=== PATIENT | female | born 1935 | race Caucasian/White ===

== ENCOUNTER 2017-03-08 08:59 | Emergency (ER) | payer OTHER, MEDICAID ==
[2017-03-08 09:05] VITALS: BP 144/38; BMI 33.3
[2017-03-08] MEDS ORDERED: TORADOL 60 MG VIAL IM ONE (09:16)
[2017-03-08] MEDS ORDERED: TORADOL 60 MG VIAL ONE (09:17)
--- NOTE | 2017-03-08 09:20 | DR.GENAD ---
HPI - PCP Primary Care Physician: katie - Complaint/Symptoms Chief Complaint Doctors Comments: Patient admits to falling off the side of bed with hands extended. Admits to swelling of right wrist. Chief Complaint:: patient stated she fell at home early this morning and landed on her right wrist. - Source History Provided: Patient - Mode of Arrival Mode of Arrival: Ambulatory - Timing Onset of Chief Complaint: 03/08/17 PMH - PMH Past Medical History: Yes Past Medical History: Anemia, Angina, Anxiety, Arthritis, COPD, Coronary Artery Disease, CVA, Depression, Diabetes, Dyslipidemia, GERD, Hypertension, Hypothyroidism, [place] Past Surgical History: Yes Surgical History: Angioplasty/Stents, Appendectomy, CABG/Valve Surgery, Cholecystectomy, Hysterectomy - Family History History of Family Medical Conditions: Yes Family Medical History: Diabetes Mellitus, Cancer, [place], Coronary Artery Disease, Hypertension - Social History Does patient currently use any type of tobacco product: No Have you used tobacco products in the last 12 months: No Type of Tobacco Use: None Does any household member use tobacco: No Alcohol Use: None Do you use any recreational Drugs:: No Lives With: Family Lives Where: Home - infectious screening In the last 2 months have you had wt loss of >10#?: NO Have you had fever, night sweats or hemotysis?: No Have you traveled outside the country in the last 6 months?: No Isolation: Standard ROS - Review of Systems Eyes: No Symptoms Reported ENTM: No Symptoms Reported Respiratoy: No Symptoms Reported Cardiovascular: No Symptoms Reported Gastrointestinal/Abdominal: No Symptoms Reported Genitourinary: No Symptoms Reported Neurological: No Symptoms Reported Musculoskeletal: Right, Forearm (and wrist) Integumentary: No Symptoms Reported Hematologic/Lymphatic: No Symptoms Reported Endocrine: No Symptoms Reported Psychiatric: No Symptoms Reported All Other Systems: Reviewed and Negative PE - Vital Signs Vitals: Temperature 98.4 F Pulse Rate 55 Respiratory Rate 16 Blood Pressure [Left Arm] 142/61 Blood Pressure [Right Arm] 153/60 Blood Pressure 144/38 O2 Sat by Pulse Oximetry 99 - General Limitations: No Limitations General Appearance: Alert, In No Apparent Distress - Head Head Exam: Normal Inspection, Atraumatic - Eyes Eye exam: Normal Appearance, PERRL, EOMI - ENT ENT Exam: Normal Exam External Ear Exam: Normal External Inspection TM/Canal Exam: Bilateral Normal Nose Exam: Normal Nose Exam Mouth Exam: Normal Inspection Throat Exam: Normal Inspection - Neck Neck Exam: Normal Inspection - Chest Chest Inspection: Normal Inspection - Respiratory Respiratory Exam: Normal Lung Sounds Bilat Respiratory Exam: Bilateral Clear to Auscultation - Cardiovascular Cardiovascular Exam: Regular Rate - Abdominal Exam Abdominal Exam: Normal Inspection Abdominal Tenderness: negative: RUQ, RLQ, LUQ, LLQ, Epigastrium, Suprapubic, Diffuse, Mild, Moderate, Severe, Other - Extremities Extremities Exam: Tenderness (right distall forearm medially), Edema (right forearm) - Back Back Exam: Normal Inspection - Neurologic Neurological Exam: Alert, Oriented X3, CN II-XII Intact - Psychiatric Psychiatric Exam: Normal Affect, Normal Mood - Skin Skin Exam: Warm, Dry, Intact ROR - Labs Reviewed Laboratory Results Reviewed?: Yes - XRAY XRAY Interpreted by: Radiologist (Fracture of the distal right radius beginning in the metaphysis and extending onto the joint surface. Intack distal ulna.) - Diagnosis Discharge Problem: Distal radius fracture, right Qualifiers: Encounter type: initial encounter Fracture type: closed Fracture morphology: unspecified fracture morphology Qualified Code(s): S52.501A - Unspecified fracture of the lower end of right radius, initial encounter for closed fracture - Discharge Plan Condition: Stable - Follow ups/Referrals Follow ups/Referrals: Owen Hatfield [Primary Care Provider] - 3 days - Instructions
--- NOTE | 2017-03-08 09:54 | RAD ---
HISTORY: Injury, fall, right wrist pain and swelling Study: right forearm two view Comparison: None Findings: There is a fracture of the metaphysis of the distal right radius with extension onto the joint surfa ce. The distal ulna appears intact. The visualized carpal bones appear intact and normally aligned. Arterial vascular calcifications are present. IMPRESSION: Fracture of the distal right radius beginning in the metaphysis and extending onto the joint surface Intact distal ulna Reported By:
== END 2017-03-08 10:46 | disposition home or self-care (01) ==
LOC: ER 09:08
PROC: 2W38X1Z Immobilization of Right Upper Extremity using Splint (ICD-10-PCS; principal; 2017-03-08)
DX: S52.501A Unspecified fracture of the lower end of right radius, initial encounter for closed fracture (principal); W06.XXXA Fall from bed, initial encounter; Y92.009 Unspecified place in unspecified non-institutional (private) residence as the place of occurrence of the external cause
CPT/HCPCS: 29125; 73090; 96372; 99282; 99283; J1885

== ENCOUNTER 2018-05-10 10:41 | Inpatient (IN) ==
[2018-05-10 12:32] LABS: BASOPHILS # (AUTO) 0.1 X10^3/uL (0.0-0.1); EOSINOPHILS # (AUTO) 0.2 x10^3/uL (0.0-0.2); EOSINOPHILS % (AUTO) 1.9 % (0.9-2.9); HEMOGLOBIN 12.9 g/dL (12.0-16.0); LYMPHOCYTES % (AUTO) 21.8 % (21.0-51.0); MEAN CORPUSCULAR HEMOGLOBIN 27.4 pg (27.0-34.0); MEAN CORPUSCULAR HGB CONC 32.2 g/dL (33.0-35.0); MEAN CORPUSCULAR VOLUME 85.2 fL (80.0-100.0); MEAN PLATELET VOLUME 8.9 fL (7.4-11.0); MONOCYTES # (AUTO) 0.6 x10^3/uL (0.3-0.8); MONOCYTES % (AUTO) 6.5 % (0.0-13.0); NEUTROPHILS # (AUTO) 6.3 x10^3/uL (2.2-4.8); NEUTROPHILS % (AUTO) 68.8 % (42.0-75.0); PLATELET COUNT 242 X10^3/uL (150.0-450.0); RED BLOOD COUNT 4.69 X10^6/uL (3.5-5.4); RED CELL DISTRIBUTION WIDTH 17.1 % (11.6-16.5); WHITE BLOOD COUNT 9.2 X10^3/uL (3.6-10.0)
[2018-05-10 12:53] LABS: ALANINE AMINOTRANSFERASE 10 Units/L (12-78); ALBUMIN 2.9 g/dL (3.4-5.0); ALKALINE PHOSPHATASE 68 Units/L (46-116); ASPARTATE AMINO TRANSFERASE 10 Units/L (15-37); BLOOD UREA NITROGEN 23 mg/dL (7-18); CALCIUM 8.3 mg/dL (8.5-10.1); CARBON DIOXIDE 27.1 mmol/L (21-32); CHLORIDE 102 mmol/L (98-107); CKMB % 3.6 % (<4); COR CA(FOR HYPOALB) 9.2 mg/dL (8.5-10.1); COR NA(FOR HYPERGLY) 141 mmol/L (136-145); CREATINE KINASE 39 Units/L (26-192); CREATINE KINASE MB 1.4 ng/mL (0-4.0); CREATININE 1.21 mg/dL (0.55-1.02); SODIUM 135 mmol/L (136-145); TROPONIN I < 0.02 ng/mL (0-1.5); eGFR NON BLACK RACES 46 (>60)
[2018-05-10 12:59] LABS: CREATINE KINASE 40 Units/L (26-192); CREATINE KINASE MB 1.6 ng/mL (0-4.0); TROPONIN I < 0.02 ng/mL (0-1.5)
[2018-05-10] MEDS: CARDIZEM INJ 125 MG VIAL 125 MG in NS 100 ML IV 100 ML IV PRN (13:05)
[2018-05-10 13:12] VITALS: BMI 31.6
--- NOTE | 2018-05-10 13:39 | RAD ---
Exam: Portable chest History: 82-year-old female with shortness of breath. Comparison: Previous chest radiograph from 02/03/2015 Findings: Mild cardiomegaly is seen. No significant vascular congestion however. Patient is status post median sternotomy. Right hemidiaphragm is mildly elevated. Lungs are clear with no infiltrate or significant effusion on either side. Impression: Mild cardiomegaly. No acute superimposed abnormality is seen on this exam however. Reported By:
[2018-05-10 21:11] LABS: CKMB % 3.6 % (<4); CREATINE KINASE 42 Units/L (26-192); CREATINE KINASE MB 1.5 ng/mL (0-4.0)
[2018-05-10 21:43] LABS: TROPONIN I < 0.02 ng/mL (0-1.5)
[2018-05-10] MEDS: HumuLIN R SC PRN (22:08)
[2018-05-11] MEDS ORDERED: TYLENOL 325 MG TAB PO ONE (00:10)
[2018-05-11] MEDS ORDERED: CARDIZEM INJ 50 MG VIAL ONE ×2 (00:44→00:49)
[2018-05-11] MEDS: CARDIZEM INJ 125 MG VIAL 125 MG in NS 100 ML IV 100 ML IV PRN (01:56)
[2018-05-11] MEDS: HumuLIN R SC PRN ×4 (06:04→20:41)
[2018-05-11 06:17] LABS: BASOPHILS % (AUTO) 0.6 % (0.2-1.0); EOSINOPHILS # (AUTO) 0.2 x10^3/uL (0.0-0.2); EOSINOPHILS % (AUTO) 3.5 % (0.9-2.9); HEMATOCRIT 37.7 % (36.0-47.0); HEMOGLOBIN 12.2 g/dL (12.0-16.0); LYMPHOCYTES # (AUTO) 1.4 X10^3/uL (1.3-2.9); LYMPHOCYTES % (AUTO) 20.4 % (21.0-51.0); MEAN CORPUSCULAR HEMOGLOBIN 27.3 pg (27.0-34.0); MEAN CORPUSCULAR HGB CONC 32.3 g/dL (33.0-35.0); MEAN CORPUSCULAR VOLUME 84.6 fL (80.0-100.0); MEAN PLATELET VOLUME 9.3 fL (7.4-11.0); MONOCYTES # (AUTO) 0.5 x10^3/uL (0.3-0.8); MONOCYTES % (AUTO) 7.5 % (0.0-13.0); NEUTROPHILS # (AUTO) 4.7 x10^3/uL (2.2-4.8); PLATELET COUNT 218 X10^3/uL (150.0-450.0); RED BLOOD COUNT 4.45 X10^6/uL (3.5-5.4); RED CELL DISTRIBUTION WIDTH 17.1 % (11.6-16.5); WHITE BLOOD COUNT 6.9 X10^3/uL (3.6-10.0)
[2018-05-11 06:35] LABS: ALANINE AMINOTRANSFERASE 10 Units/L (12-78); ALBUMIN 2.6 g/dL (3.4-5.0); ALKALINE PHOSPHATASE 59 Units/L (46-116); ASPARTATE AMINO TRANSFERASE 11 Units/L (15-37); BLOOD UREA NITROGEN 16 mg/dL (7-18); CALCIUM 8.5 mg/dL (8.5-10.1); CARBON DIOXIDE 28.8 mmol/L (21-32); CHLORIDE 105 mmol/L (98-107); COR CA(FOR HYPOALB) 9.6 mg/dL (8.5-10.1); COR NA(FOR HYPERGLY) 143 mmol/L (136-145); CREATININE 0.94 mg/dL (0.55-1.02); SODIUM 139 mmol/L (136-145); TOTAL PROTEIN 6.2 g/dL (6.4-8.2); eGFR NON BLACK RACES > 60 (>60)
[2018-05-11] MEDS ORDERED: DILTIAZEM HCL 240 MG PO SCH (09:45)
[2018-05-11] MEDS ORDERED: COREG TAB 6.25 MG PO SCH (10:00)
[2018-05-11] MEDS: CARDIZEM CD 240 MG PO SCH (10:30)
[2018-05-11] MEDS: PATIENT'S HOME MEDICATION (Mirabegron [Myrbetriq] 50 MG) PO SCH (10:30)
[2018-05-11] MEDS: XARELTO PO SCH (10:31)
[2018-05-11] MEDS: LIPITOR TAB 40 MG PO SCH (10:31)
[2018-05-11] MEDS ORDERED: LANOXIN PO ONE (11:00)
--- NOTE | 2018-05-11 15:58 | DR.H&P ---
H&P - History & Physical for Day of: H&P Date: 05/10/18 - Chief Complaint Chief Complaint: tachycardia, short of breath, dizziness - History of Present Illness History of Present Illness: Patient presented to the hospital as a direct admission with reports of elevated heart rate, shortness of breath. Patient reports that her home health nurse was at her home for a routine visit. Upon checking her vitals, patient was found with a heart rate 120-130bpm. Patients baseline heart rate is in the 50s. Patient reports that she has been short of breath and dizzy since yesterday. Medical History includes: CVA, Hypertension, Back Pain, DM type II, and Atrial Fibrillation. On admission, vitlas were 97.1, 148, 22, 97% RA, 114/81. Labs were obtained. Abnormal Labs include the following: MCHC 32.2, RDW 17.1, Neut# 6.3, Sodium 135, BUN 23, Creatinine 1.21, GFR af 55, GFR non 46, Glucose 349, Calcium 8.3, AST 10, ALT 10, Albumin 2.9, A/ G Ratio 0.7. Chest X-Ray obtained and revealed: Mild cardiomegaly. No acute superimposed abnormality is seen on this exam however. 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 She was started on a Cardizem drip. We plan to follow up with serial cardiac enzymes and EKGs. We will obtain AM labs and continue to monitor patient. - Past Medical History Past Medical History: Anemia, Angina, Anxiety, Arthritis, COPD, Coronary Artery Disease, CVA, Depression, Diabetes, Dyslipidemia, GERD, Hypertension, Hypothyroidism, [place] Additional Medical History: Freq UTI's, PVD - Past Surgical History Surgical History: Cholecystectomy, Other - Family History Family Medical History: Diabetes Mellitus, Cancer - Social History Does patient currently use any type of tobacco product: No Have you used tobacco products in the last 12 months: No Type of Tobacco Use: None Does any household member use tobacco: No Alcohol Use: None Drug Use: None - Medications Home Medications: No Known Drug Allergies Allergy (Verified 08/27/17 12:03) CONTINUE taking the following medications atorvastatin 40 mg PO QDAY 05/10/18 [History] carvedilol 6.25 mg PO BID 05/10/18 [History] diltiazem HCl [Cartia XT] 240 mg PO QDAY 05/10/18 [History] mirabegron [Myrbetriq] 50 mg PO QDAY 05/10/18 [History] rivaroxaban [Xarelto] 20 mg PO QDAY 05/10/18 [History] - Review of Systems Constitutional: Weakness, Malaise Eyes: No Symptoms Reported ENT: No Symptoms Reported Respiratory: Shortness of Breath Cardiovascular: Chest Pain, Palpitations, Light Headedness Gastrointestinal: No Symptoms Reported Genitourinary: No Symptoms Reported Musculoskeletal: No Symptoms Reported Skin: No Symptoms Reported Neurological: Weakness - Physical Exam Vital Signs: Temperature 97.8 F Pulse Rate [Left Brachial] 76 Pulse Rate 76 Respiratory Rate 18 Blood Pressure [Left Arm] 149/77 Blood Pressure [Right Arm] 153/60 Blood Pressure 144/38 O2 Sat by Pulse Oximetry 98 Oriented: Normal Eyes: Normal Ear: Normal Nose: Normal Throat: Normal Respiratory: Diminished Throughout Cardiovascular: Tachycardia. negative: S3, S4, Murmur : Normal Auscultation: Bowel Sounds: Normal Palpation: Normal Tenderness: Normal Skin: Normal Musculoskeletal: Normal Psychiatric: Normal Mood Description: Calm Affect: Normal Speech Pattern: Clear - Assessment/Plan (1) Atrial fibrillation with rapid ventricular response Status: Acute Plan: admit, cardizem drip, supplemental oxygen, continue to monitor (2) Chest pain Qualifiers: Chest pain type: unspecified Qualified Code(s): R07.9 - Chest pain, unspecified Status: Acute Plan: serial cardiac enzymes and ekg, supplemental oxygen, continue to monitor - Allergies Allergies/Adverse Reactions: Allergies Allergy/AdvReac Type Severity Reaction Status Date / Time No Known Drug Allergies Allergy Verified 08/27/17 12:03
--- NOTE | 2018-05-11 16:38 | PCM.PROG ---
Progress Note - Progress Note for Day of Date of Exam: 05/11/18 - Subjective Subjective: was admitted for atrial fibrillation with RVR and chest pain. She was placed in the intensive care unit on a Cardizem drip. Today, she is alert and oriented, lying in bed on morning rounds. She denies chest pain or dizziness today. She does report shortness of breath at times. On examination, heart is regular in rate and rhythm. turning sander tender reveals HR in the 70s. Bilateral lungs are clear to auscultation. Abdomen is round, soft, and non- tender with normal bowel sounds noted in all quadrants. Her vitals this morning are 97.5-77-20-97%-127/63. Labs were obtained. Abnormal Labs include the following: MCHC 32.3, RDW 17.1, Lymph% 20.4, Eos% 3.5, Glucose 270, AST 11, ALT 10, Total Protein 6.2, Albumin 2.6, A/G Ratio 0.7, Digoxin <0.20. Cardiac enzymes have been within normal limits. Most recent EKG reveals sinus rhythm with HR 76. Today, we will administer digoxin 0.125mg po x 1 dose and resume her PO Cardizem. We will then discontinue the Cardizem drip. Otherwise, we will continue to monitor patient in the ICU. We will follow up with AM labs and EKG. - Past Medical Family Social History Past Med/Fam/Surg Hx: No changes since H&P Allergies: Allergies No Known Drug Allergies Allergy (Verified 08/27/17 12:03) - Review of Systems ROS: No change since H&P - Vital Signs and I&O's Vital Signs: Temperature 98 F Pulse Rate [Left Brachial] 77 Pulse Rate 76 Respiratory Rate 20 Blood Pressure [Left Arm] 163/71 Blood Pressure [Right Arm] 153/60 Blood Pressure 144/38 O2 Sat by Pulse Oximetry 98 Intake and Output: Intake & Output 05/09/18 05/10/18 05/11/18 05/12/18 11:59 11:59 11:59 11:59 Intake Total 935 / 935 700 / 700 Balance 935 / 935 700 / 700 - Physical Exam Oriented: Normal Eyes: Normal Ear: Normal Nose: Normal Throat: Normal Respiratory: Normal Cardiovascular: Normal. negative: S3, S4, Murmur : Normal Auscultation: Bowel Sounds: Normal Palpation: Normal Tenderness: Normal Skin: Normal Musculoskeletal: Normal Psychiatric: Normal Mood Description: Calm Affect: Normal Speech Pattern: Clear - Laboratory and Diagnostics Result Diagrams: 05/11/18 05:17 05/11/18 05:17 Labs: Laboratory WBC 6.9 X10^3/uL (3.6-10.0) 05/11/18 05:17 RBC 4.45 X10^6/uL (3.5-5.4) 05/11/18 05:17 Hgb 12.2 g/dL (12.0-16.0) 05/11/18 05:17 Hct 37.7 % (36.0-47.0) 05/11/18 05:17 MCV 84.6 fL (80.0-100.0) 05/11/18 05:17 MCH 27.3 pg (27.0-34.0) 05/11/18 05:17 MCHC 32.3 g/dL (33.0-35.0) L 05/11/18 05:17 RDW 17.1 % (11.6-16.5) H 05/11/18 05:17 Plt Count 218 X10^3/uL (150.0-450.0) 05/11/18 05:17 MPV 9.3 fL (7.4-11.0) 05/11/18 05:17 Neut % (Auto) 68.0 % (42.0-75.0) 05/11/18 05:17 Lymph % (Auto) 20.4 % (21.0-51.0) L 05/11/18 05:17 [place] % (Auto) 7.5 % (0.0-13.0) 05/11/18 05:17 Eos % (Auto) 3.5 % (0.9-2.9) H 05/11/18 05:17 Baso % (Auto) 0.6 % (0.2-1.0) 05/11/18 05:17 Neut # (Auto) 4.7 x10^3/uL (2.2-4.8) 05/11/18 05:17 Lymph # (Auto) 1.4 X10^3/uL (1.3-2.9) 05/11/18 05:17 Benson # (Auto) 0.5 x10^3/uL (0.3-0.8) 05/11/18 05:17 Eos # (Auto) 0.2 x10^3/uL (0.0-0.2) 05/11/18 05:17 Baso # (Auto) 0.0 X10^3/uL (0.0-0.1) 05/11/18 05:17 Absolute Nucleated RBC 0.0 /100WBC 05/11/18 05:17 Sodium 139 mmol/L (136-145) 05/11/18 05:17 Corrected Sodium 143 mmol/L (136-145) 05/11/18 05:17 Potassium 3.6 mmol/L (3.5-5.1) 05/11/18 05:17 Chloride 105 mmol/L (98-107) 05/11/18 05:17 Carbon Dioxide 28.8 mmol/L (21-32) 05/11/18 05:17 BUN 16 mg/dL (7-18) 05/11/18 05:17 Creatinine 0.94 mg/dL (0.55-1.02) 05/11/18 05:17 Est GFR (MDRD) Af Amer > 60 (>60) 05/11/18 05:17 Est GFR (MDRD) Non-Af > 60 (>60) 05/11/18 05:17 Glucose 270 mg/dL (65-99) H 05/11/18 05:17 POC Glucose (mg/dL) 368 mg/dL (65-99) H 05/11/18 11:22 Calcium 8.5 mg/dL (8.5-10.1) 05/11/18 05:17 Corrected Calcium 9.6 mg/dL (8.5-10.1) 05/11/18 05:17 Total Bilirubin 0.50 mg/dL (0.2-1.0) 05/11/18 05:17 AST 11 Units/L (15-37) L 05/11/18 05:17 ALT 10 Units/L (12-78) L 05/11/18 05:17 Alkaline Phosphatase 59 Units/L (46-116) 05/11/18 05:17 Creatine Kinase 42 Units/L (26-192) 05/10/18 20:30 CK-MB (CK-2) 1.5 ng/mL (0-4.0) 05/10/18 20:30 CK/CKMB % Calc 3.6 % (<4) 05/10/18 20:30 Troponin I < 0.02 ng/mL (0-1.5) 05/10/18 20:30 Total Protein 6.2 g/dL (6.4-8.2) L 05/11/18 05:17 Albumin 2.6 g/dL (3.4-5.0) L 05/11/18 05:17 Globulin 3.6 g/dL (2.5-4.5) 05/11/18 05:17 Albumin/Globulin Ratio 0.7 Ratio (1.1-2.1) L 05/11/18 05:17 Digoxin < 0.20 ng/mL (0.9-2) L 05/11/18 05:17 - Plan (1) Atrial fibrillation with rapid ventricular response Status: Acute Plan: admit, cardizem 240mg po daily, digoxin 0.125mg po x 1 dose, supplemental oxygen, continue to monitor (2) Chest pain Status: Acute Qualifiers: Chest pain type: unspecified Qualified Code(s): R07.9 - Chest pain, unspecified Plan: supplemental oxygen, continue to monitor
[2018-05-11] MEDS: TYLENOL 325 MG TAB PO PRN (22:22)
[2018-05-12] MEDS: MILK OF MAGNESIA PO SCH ×3 (00:38→21:32)
[2018-05-12] MEDS: CARDIZEM INJ 125 MG VIAL 125 MG in NS 100 ML IV 100 ML IV PRN ×3 (03:11→05:50)
[2018-05-12] MEDS: HumuLIN R SC PRN ×4 (05:51→21:45)
[2018-05-12 06:14] LABS: BASOPHILS # (AUTO) 0.1 X10^3/uL (0.0-0.1); BASOPHILS % (AUTO) 0.7 % (0.2-1.0); EOSINOPHILS # (AUTO) 0.2 x10^3/uL (0.0-0.2); EOSINOPHILS % (AUTO) 2.4 % (0.9-2.9); HEMATOCRIT 39.2 % (36.0-47.0); HEMOGLOBIN 12.9 g/dL (12.0-16.0); LYMPHOCYTES # (AUTO) 1.8 X10^3/uL (1.3-2.9); LYMPHOCYTES % (AUTO) 21.8 % (21.0-51.0); MEAN CORPUSCULAR HEMOGLOBIN 27.4 pg (27.0-34.0); MEAN CORPUSCULAR HGB CONC 32.8 g/dL (33.0-35.0); MEAN CORPUSCULAR VOLUME 83.5 fL (80.0-100.0); MEAN PLATELET VOLUME 9.2 fL (7.4-11.0); MONOCYTES # (AUTO) 0.6 x10^3/uL (0.3-0.8); MONOCYTES % (AUTO) 6.8 % (0.0-13.0); NEUTROPHILS # (AUTO) 5.6 x10^3/uL (2.2-4.8); NEUTROPHILS % (AUTO) 68.3 % (42.0-75.0); PLATELET COUNT 234 X10^3/uL (150.0-450.0); RED BLOOD COUNT 4.69 X10^6/uL (3.5-5.4); RED CELL DISTRIBUTION WIDTH 16.7 % (11.6-16.5); WHITE BLOOD COUNT 8.2 X10^3/uL (3.6-10.0)
[2018-05-12 06:32] LABS: ALANINE AMINOTRANSFERASE 10 Units/L (12-78); ALBUMIN 2.6 g/dL (3.4-5.0); ALKALINE PHOSPHATASE 60 Units/L (46-116); ASPARTATE AMINO TRANSFERASE 11 Units/L (15-37); BLOOD UREA NITROGEN 11 mg/dL (7-18); CALCIUM 8.7 mg/dL (8.5-10.1); CARBON DIOXIDE 30.5 mmol/L (21-32); CHLORIDE 107 mmol/L (98-107); COR CA(FOR HYPOALB) 9.8 mg/dL (8.5-10.1); COR NA(FOR HYPERGLY) 146 mmol/L (136-145); SODIUM 142 mmol/L (136-145); TOTAL PROTEIN 6.4 g/dL (6.4-8.2); eGFR NON BLACK RACES > 60 (>60)
[2018-05-12] MEDS: XARELTO PO SCH (08:43)
[2018-05-12] MEDS: LIPITOR TAB 40 MG PO SCH (08:43)
[2018-05-12] MEDS: CARDIZEM CD 240 MG PO SCH (08:43)
[2018-05-12] MEDS: PATIENT'S HOME MEDICATION (Mirabegron [Myrbetriq] 50 MG) PO SCH (08:44)
[2018-05-12] MEDS: COREG TAB 3.125 MG PO SCH ×2 (09:38→21:33)
[2018-05-12] MEDS ORDERED: COLACE CAP 100 MG PO SCH (21:00)
[2018-05-12] MEDS: TYLENOL 325 MG TAB PO PRN (21:31)
[2018-05-13] MEDS ORDERED: ULTRAM PO PRN (01:04)
[2018-05-13] MEDS: HumuLIN R SC PRN (05:30)
[2018-05-13 06:02] LABS: ALANINE AMINOTRANSFERASE 11 Units/L (12-78); ALBUMIN 2.5 g/dL (3.4-5.0); ALKALINE PHOSPHATASE 63 Units/L (46-116); ASPARTATE AMINO TRANSFERASE 13 Units/L (15-37); BLOOD UREA NITROGEN 12 mg/dL (7-18); CALCIUM 8.6 mg/dL (8.5-10.1); CARBON DIOXIDE 28.5 mmol/L (21-32); CHLORIDE 106 mmol/L (98-107); COR CA(FOR HYPOALB) 9.8 mg/dL (8.5-10.1); COR NA(FOR HYPERGLY) 142 mmol/L (136-145); CREATININE 0.78 mg/dL (0.55-1.02); SODIUM 139 mmol/L (136-145); TOTAL PROTEIN 6.2 g/dL (6.4-8.2); eGFR NON BLACK RACES > 60 (>60)
[2018-05-13 06:09] LABS: BASOPHILS % (AUTO) 0.6 % (0.2-1.0); EOSINOPHILS # (AUTO) 0.2 x10^3/uL (0.0-0.2); EOSINOPHILS % (AUTO) 2.9 % (0.9-2.9); HEMATOCRIT 38.9 % (36.0-47.0); HEMOGLOBIN 12.7 g/dL (12.0-16.0); LYMPHOCYTES % (AUTO) 27.6 % (21.0-51.0); MEAN CORPUSCULAR HEMOGLOBIN 27.3 pg (27.0-34.0); MEAN CORPUSCULAR HGB CONC 32.6 g/dL (33.0-35.0); MEAN PLATELET VOLUME 8.8 fL (7.4-11.0); MONOCYTES # (AUTO) 0.6 x10^3/uL (0.3-0.8); MONOCYTES % (AUTO) 7.8 % (0.0-13.0); NEUTROPHILS # (AUTO) 4.5 x10^3/uL (2.2-4.8); NEUTROPHILS % (AUTO) 61.1 % (42.0-75.0); PLATELET COUNT 244 X10^3/uL (150.0-450.0); RED BLOOD COUNT 4.63 X10^6/uL (3.5-5.4); RED CELL DISTRIBUTION WIDTH 16.8 % (11.6-16.5); WHITE BLOOD COUNT 7.3 X10^3/uL (3.6-10.0)
[2018-05-13] MEDS: CARDIZEM CD 240 MG PO SCH (08:10)
[2018-05-13] MEDS: MILK OF MAGNESIA PO SCH (08:10)
[2018-05-13] MEDS: COREG TAB 3.125 MG PO SCH (08:10)
[2018-05-13] MEDS: LIPITOR TAB 40 MG PO SCH (08:10)
[2018-05-13] MEDS: XARELTO PO SCH (08:11)
[2018-05-13] MEDS: PATIENT'S HOME MEDICATION (Mirabegron [Myrbetriq] 50 MG) PO SCH (10:05)
[2018-05-13 11:10] VITALS: BP 136/63
--- NOTE | 2018-06-26 13:46 | DR.CARTERD ---
- Discharge Summary for: Discharge Summary for Date of:: 05/13/18 - Admission Date Date of Admission: 05/10/18 - Admission Diagnoses Admission Diagnosis: (1) Atrial fibrillation with rapid ventricular response (2) Chest pain - Discharge Date Discharge Date: 05/13/18 - Discharge Diagnoses Discharge Diagnosis: (1) Atrial fibrillation with rapid ventricular response (2) Chest pain - Hospital Course Hospital Course: Day one, Patient presented to the hospital as a direct admission with reports of elevated heart rate, shortness of breath. Patient reported that her home health nurse was at her home for a routine visit. Upon checking her vitals, patient was found with a heart rate 120-130bpm. Patients baseline heart rate was in the 50s. Patient reported that she has been short of breath and dizzy since the day before. Medical History included: CVA, Hypertension, Back Pain, DM type II, and Atrial Fibrillation. On admission, vitals were 97.1, 148, 22, 97 % RA, 114/81. Labs were obtained. Abnormal Labs included the following: MCHC 32.2, RDW 17.1, Neut# 6.3, Sodium 135, BUN 23, Creatinine 1.21, GFR af 55, GFR non 46, Glucose 349, Calcium 8.3, AST 10, ALT 10, Albumin 2.9, A/G Ratio 0.7. Chest X-Ray obtained and revealed: Mild cardiomegaly. No acute superimposed abnormality is seen on this exam however. She was placed on the ekg monitor tech which revealed atrial fibrillation. She was started on a Cardizem drip. We obtained serial cardiac enzymes and EKGs. We continued to monitor patient. Day two, was admitted for atrial fibrillation with RVR and chest pain. She was placed in the intensive care unit on a Cardizem drip. She was alert and oriented, lying in bed on morning rounds. She denied chest pain or dizziness. She did report shortness of breath at times. On examination, heart was regular in rate and rhythm. school bus monitor revealed HR in the 70s. Bilateral lungs were clear to auscultation. Abdomen was round, soft, and non- tender with normal bowel sounds noted in all quadrants. Her vitals were 97.5-77- 20-97%-127/63. Labs were obtained. Abnormal Labs included the following: MCHC 32.3, RDW 17.1, Lymph% 20.4, Eos% 3.5, Glucose 270, AST 11, ALT 10, Total Protein 6.2, Albumin 2.6, A/G Ratio 0.7, Digoxin <0.20. Cardiac enzymes within normal limits. Most recent EKG revealed sinus rhythm with HR 76. We administered digoxin 0.125mg po x 1 dose and resumed her PO Cardizem. We weaned the Cardizem drip and continued to monitor in ICU. Day three, Cardizem drip was weaned. Heart rate was 105-146 on the ekg monitor tech. Patient continued to report periodic shortness of breath. She denied chest pain or dizziness. Blood pressure was stable as well as labs. Patient was started on PO Cardizem the day prior and we added Coreg 3.125mg po bid to her regimen. Day four, Heart rate was 79. Patient denied shortness of breath, chest pain, or dizziness. On auscultation, lungs clear. Vitals stable. Labs wnl. We planned for discharge. Instructions for medications and follow up were discussed with patient and family, both voiced understanding. Patient discharged home in stable condition with family. - Discharge Medications Discharge Medications: Home Medication List atorvastatin 40 mg PO QDAY 05/10/18 [History] mirabegron [Myrbetriq] 50 mg PO QDAY 05/10/18 [History] rivaroxaban [Xarelto] 20 mg PO QDAY 05/10/18 [History] carvedilol [Coreg] 3.125 mg PO BID #60 tab 05/13/18 [Rx] digoxin [Lanoxin] 0.125 mg PO QDAY #30 tab 05/13/18 [Rx] Prescriptions: carvedilol [Coreg] [place] digoxin [Lanoxin] [place] Home medications esomeprazole magnesium 40 mg PO DAILY 05/15/18 levothyroxine 175 mcg PO DAILY 05/15/18 lisinopril-hydrochlorothiazide 1 tab PO DAILY 05/15/18 potassium chloride 10 meq PO DAILY 05/15/18 diltiazem HCl [Cardizem CD] 1 cap PO DAILY 05/16/18 insulin glargine [Lantus U-100 Insulin] 15 unit SUBCUT BID 05/18/18 levofloxacin [Levaquin] 500 mg PO DAILY #10 tab 05/18/18 - Discharge Disposition Discharge Disposition: Patient is to follow up in our office in one week.
== END 2018-05-13 11:30 | disposition home health service (06) | DRG 310 ==
LOC: ICU 11:51
PROVIDERS: ADMIT Internal Medicine; ATTEND Internal Medicine
DX: F41.8 Other specified anxiety disorders; R07.89 Other chest pain; R00.0 Tachycardia, unspecified; I48.91 Unspecified atrial fibrillation; M54.89 Other dorsalgia; Z66 Do not resuscitate; I10 Essential (primary) hypertension; I51.7 Cardiomegaly; R42 Dizziness and giddiness; J44.9 Chronic obstructive pulmonary disease, unspecified; I25.10 Atherosclerotic heart disease of native coronary artery without angina pectoris
CPT/HCPCS: 36415; 71010; 71045; 80053; 80162; 82550; 82553; 84484; 85025; 93005; 97162; 97167; A4222; J1815; J3490; J7050

== ENCOUNTER 2018-05-15 14:39 | Inpatient (IN) ==
[2018-05-15] MEDS ORDERED: CARDIZEM INJ 50 MG VIAL IVP ONE (15:01)
[2018-05-15] MEDS: NS 1000 ML 1,000 ML IV SCH (15:05)
[2018-05-15 16:24] LABS: BASOPHILS # (AUTO) 0.1 X10^3/uL (0.0-0.1); BASOPHILS % (AUTO) 0.7 % (0.2-1.0); EOSINOPHILS # (AUTO) 0.1 x10^3/uL (0.0-0.2); EOSINOPHILS % (AUTO) 0.8 % (0.9-2.9); HEMATOCRIT 41.8 % (36.0-47.0); HEMOGLOBIN 13.5 g/dL (12.0-16.0); LYMPHOCYTES # (AUTO) 1.4 X10^3/uL (1.3-2.9); MEAN CORPUSCULAR HEMOGLOBIN 27.6 pg (27.0-34.0); MEAN CORPUSCULAR HGB CONC 32.3 g/dL (33.0-35.0); MEAN CORPUSCULAR VOLUME 85.2 fL (80.0-100.0); MEAN PLATELET VOLUME 9.7 fL (7.4-11.0); MONOCYTES # (AUTO) 0.6 x10^3/uL (0.3-0.8); MONOCYTES % (AUTO) 7.5 % (0.0-13.0); NEUTROPHILS # (AUTO) 6.2 x10^3/uL (2.2-4.8); PLATELET COUNT 256 X10^3/uL (150.0-450.0); RED CELL DISTRIBUTION WIDTH 17.3 % (11.6-16.5); WHITE BLOOD COUNT 8.4 X10^3/uL (3.6-10.0)
[2018-05-15 16:31] LABS: CARBON DIOXIDE 27.3 mmol/L (21-32); CREATININE 1.29 mg/dL (0.55-1.02)
[2018-05-15] MEDS ORDERED: CARDIZEM INJ 125 MG VIAL 125 MG in NS 100 ML IV 100 ML IV PRN (17:16)
[2018-05-15] MEDS ORDERED: NS 100 ML IV 100 ML IV ONE (17:19)
[2018-05-15] MEDS ORDERED: CARDIZEM INJ 125 MG VIAL ONE (17:20)
[2018-05-15] MEDS: ULTRAM PO PRN (21:10)
[2018-05-15 22:14] LABS: BILIRUBIN,URINE NEGATIVE (NEGATIVE); BLOOD/HEMOGLOBIN,URINE 1+ (NEGATIVE); GLUCOSE, URINE 3+ (NEGATIVE); KETONES,URINE NEGATIVE (NEGATIVE); LEUKOCYTE ESTERASE ,URINE 2+ (NEGATIVE); NITRITES,URINE NEGATIVE (NEGATIVE); PROTEIN,URINE NEGATIVE (NEGATIVE); UROBILINOGEN,URINE NORMAL (NORMAL)
[2018-05-15] MEDS ORDERED: POTASSIUM CHLORIDE LIQ 20 MEQ UDC ONE (22:22)
[2018-05-15 22:23] LABS: APPEARANCE,URINE CLOUDY (CLEAR); BACTERIA,URINE 3+ /HPF (NEGATIVE); COLOR,URINE PALE YELLOW (YELLOW); SQUAMOUS EPITHELIAL CELL,UR FEW /HPF (NEGATIVE)
[2018-05-15] MEDS: TYLENOL 325 MG TAB PO PRN (23:39)
[2018-05-16] MEDS ORDERED: MILK OF MAGNESIA PO PRN (02:01)
[2018-05-16 03:15] VITALS: BMI 35.6
[2018-05-16 05:51] LABS: BASOPHILS % (AUTO) 0.7 % (0.2-1.0); EOSINOPHILS # (AUTO) 0.3 x10^3/uL (0.0-0.2); EOSINOPHILS % (AUTO) 4.1 % (0.9-2.9); HEMATOCRIT 38.2 % (36.0-47.0); HEMOGLOBIN 12.5 g/dL (12.0-16.0); LYMPHOCYTES # (AUTO) 1.9 X10^3/uL (1.3-2.9); LYMPHOCYTES % (AUTO) 30.5 % (21.0-51.0); MEAN CORPUSCULAR HEMOGLOBIN 27.3 pg (27.0-34.0); MEAN CORPUSCULAR HGB CONC 32.7 g/dL (33.0-35.0); MEAN CORPUSCULAR VOLUME 83.6 fL (80.0-100.0); MEAN PLATELET VOLUME 8.5 fL (7.4-11.0); MONOCYTES # (AUTO) 0.6 x10^3/uL (0.3-0.8); MONOCYTES % (AUTO) 9.1 % (0.0-13.0); NEUTROPHILS # (AUTO) 3.4 x10^3/uL (2.2-4.8); NEUTROPHILS % (AUTO) 55.6 % (42.0-75.0); PLATELET COUNT 221 X10^3/uL (150.0-450.0); RED BLOOD COUNT 4.57 X10^6/uL (3.5-5.4); WHITE BLOOD COUNT 6.1 X10^3/uL (3.6-10.0)
[2018-05-16 06:02] LABS: ALANINE AMINOTRANSFERASE 12 Units/L (12-78); ALBUMIN 2.5 g/dL (3.4-5.0); ALKALINE PHOSPHATASE 52 Units/L (46-116); ASPARTATE AMINO TRANSFERASE 16 Units/L (15-37); BLOOD UREA NITROGEN 14 mg/dL (7-18); CALCIUM 8.7 mg/dL (8.5-10.1); CARBON DIOXIDE 30.5 mmol/L (21-32); CHLORIDE 107 mmol/L (98-107); COR CA(FOR HYPOALB) 9.9 mg/dL (8.5-10.1); COR NA(FOR HYPERGLY) 143 mmol/L (136-145); CREATININE 0.88 mg/dL (0.55-1.02); SODIUM 141 mmol/L (136-145); TOTAL PROTEIN 6.2 g/dL (6.4-8.2); eGFR NON BLACK RACES > 60 (>60)
--- NOTE | 2018-05-16 08:38 | DR.UPDATE ---
H&P Update History and Physical Update: IS A 82 YEAR OLD PATIENT OF OURS. SHE WAS RELEASED FROM THE HOSPITAL EARLIER THIS WEEK FOR TREATMENT OF ATRIAL FIBRILLATION WITH RVR. HER H&P WAS COMPLETED WITH HER LAST ADMISSION. SHE RETURNED TODAY WITH THE SAME COMPLAINTS. ON ARRIVAL, VITALS WERE 98.7-16-168-98%-111/42. LABS WERE OBTAINED. ABNORMAL LAB VALUES INCLUDE THE FOLLOWING: SODIUM 134, CREATININE 1.29, GLUCOSE 408. URINALYSIS REVEALED WBC 10-20, RBC 3-5, LEUKOCYTS 2+, BACTERIA 3+, OCCULT BLOOD 1+. AN EKG WAS OBTAINED AND REVEALED: WIDE QRS TACHYCARDIA HR 167. SHE WAS STARTED ON A CARDIZEM DRIP AND ADMITTED TO THE INTENSIVE CARE UNIT ON THE [facility]. WE PLAN TO FOLLOW UP WITH AM LABS AND CONTINUE TO MONITOR PATIENT.
[2018-05-16] MEDS: LIPITOR TAB 40 MG PO SCH ×2 (09:05→09:07)
[2018-05-16] MEDS: PATIENT'S HOME MEDICATION (Mirabegron [Myrbetriq] 50 MG) PO SCH ×2 (09:06→09:07)
[2018-05-16] MEDS: XARELTO PO SCH ×2 (09:06→09:08)
[2018-05-16] MEDS: SYNTHROID 175 mcg TAB PO SCH (09:07)
[2018-05-16] MEDS: MICRO K EXTEN CAP 10 MEQ PO SCH (09:07)
[2018-05-16] MEDS: NexIUM PO SCH (09:07)
[2018-05-16] MEDS ORDERED: DILTIAZEM HCL PO SCH (10:15)
[2018-05-16] MEDS: LANOXIN PO SCH (10:34)
[2018-05-16] MEDS: CARDIZEM CD 240 MG PO SCH (10:34)
[2018-05-16] MEDS: COREG TAB 3.125 MG PO SCH ×2 (10:34→21:25)
[2018-05-16] MEDS: NS 1000 ML 1,000 ML IV SCH ×2 (10:36→15:27)
[2018-05-16] MEDS: HumuLIN R SUBCUT PRN ×3 (11:31→21:26)
[2018-05-16] MEDS: ROCEPHIN VIAL 1 GRAM 1 G in NS 100 ML IV + SPIKE MINIBAG* 100 ML IV SCH (15:27)
[2018-05-16] MEDS: ULTRAM PO PRN (21:22)
[2018-05-16] MEDS: COLACE CAP 100 MG PO SCH (21:25)
[2018-05-16] MEDS: SNACK - Diabetic Appropriate PO SCH (21:25)
--- NOTE | 2018-05-16 21:44 | PCM.PROG ---
Progress Note - Progress Note for Day of Date of Exam: 05/16/18 - Subjective Subjective: was admitted for atrial fibrillation with RVR. She was placed in the intensive care unit on a Cardizem drip. Today, she is alert and oriented, lying in bed on morning rounds. She denies chest pain or dizziness. She does report shortness of breath at times, but reports improvement since admission. Patient admits to not having her medicines to take at home after her discharge earlier in the week. She reports ordering them from a mail pharmacy, but has not received them yet. On examination, heart is regular in rate and rhythm. 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 Bilateral lungs are clear to auscultation. Abdomen is round, soft, and non-tender with normal bowel sounds noted in all quadrants. Her vitals this morning are 98.1-78-27-100%-116/57. Labs were obtained. She is hemodynamically stable this morning. Today, we will resume her PO Cardizem, digoxin, Xarelto, and coreg. We will then discontinue the Cardizem drip. Otherwise, we will continue to monitor patient in the ICU. We will follow up with AM labs and EKG. - Past Medical Family Social History Past Med/Fam/Surg Hx: No changes since H&P Allergies: Allergies No Known Drug Allergies Allergy (Verified 05/15/18 14:40) - Review of Systems ROS: No change since H&P - Vital Signs and I&O's Vital Signs: Temperature 98.2 F Pulse Rate [Apical] 80 Pulse Rate [Right Radial] 83 Pulse Rate 82 Respiratory Rate 19 Blood Pressure [Left Arm] 135/62 Blood Pressure [Right Arm] 131/61 Blood Pressure 111/42 O2 Sat by Pulse Oximetry 100 Intake and Output: Intake & Output 05/14/18 05/15/18 05/16/18 05/17/18 11:59 11:59 11:59 11:59 Intake Total 980.2 / 980.2 565 / 565 Output Total 1250 / 1250 1500 / 1500 Balance -269.8 / -269.8 -935 / -935 - Physical Exam Oriented: Normal Eyes: Normal Ear: Normal Nose: Normal Throat: Normal Respiratory: Normal Cardiovascular: Normal, Irregular. negative: S3, S4, Murmur : Normal Auscultation: Bowel Sounds: Normal Palpation: Normal Tenderness: Normal Skin: Normal Musculoskeletal: Normal Psychiatric: Normal Mood Description: Calm Affect: Normal Speech Pattern: Clear, Appropriate - Laboratory and Diagnostics Result Diagrams: 05/16/18 05:24 05/16/18 05:24 Labs: 05/15/18 20:03 Urine,Catheterized Urine Culture - Preliminary Laboratory WBC 6.1 X10^3/uL (3.6-10.0) 05/16/18 05:24 RBC 4.57 X10^6/uL (3.5-5.4) 05/16/18 05:24 Hgb 12.5 g/dL (12.0-16.0) 05/16/18 05:24 Hct 38.2 % (36.0-47.0) 05/16/18 05:24 MCV 83.6 fL (80.0-100.0) 05/16/18 05:24 MCH 27.3 pg (27.0-34.0) 05/16/18 05:24 MCHC 32.7 g/dL (33.0-35.0) L 05/16/18 05:24 RDW 17.0 % (11.6-16.5) H 05/16/18 05:24 Plt Count 221 X10^3/uL (150.0-450.0) 05/16/18 05:24 MPV 8.5 fL (7.4-11.0) 05/16/18 05:24 Neut % (Auto) 55.6 % (42.0-75.0) 05/16/18 05:24 Lymph % (Auto) 30.5 % (21.0-51.0) 05/16/18 05:24 [place] % (Auto) 9.1 % (0.0-13.0) 05/16/18 05:24 Eos % (Auto) 4.1 % (0.9-2.9) H 05/16/18 05:24 Baso % (Auto) 0.7 % (0.2-1.0) 05/16/18 05:24 Neut # (Auto) 3.4 x10^3/uL (2.2-4.8) 05/16/18 05:24 Lymph # (Auto) 1.9 X10^3/uL (1.3-2.9) 05/16/18 05:24 [place] # (Auto) 0.6 x10^3/uL (0.3-0.8) 05/16/18 05:24 Eos # (Auto) 0.3 x10^3/uL (0.0-0.2) H 05/16/18 05:24 Baso # (Auto) 0.0 X10^3/uL (0.0-0.1) 05/16/18 05:24 Absolute Nucleated RBC 0.0 /100WBC 05/16/18 05:24 Sodium 141 mmol/L (136-145) 05/16/18 05:24 Corrected Sodium 143 mmol/L (136-145) 05/16/18 05:24 Potassium 3.6 mmol/L (3.5-5.1) 05/16/18 05:24 Chloride 107 mmol/L (98-107) 05/16/18 05:24 Carbon Dioxide 30.5 mmol/L (21-32) 05/16/18 05:24 BUN 14 mg/dL (7-18) 05/16/18 05:24 Creatinine 0.88 mg/dL (0.55-1.02) 05/16/18 05:24 Est GFR (MDRD) Af Amer > 60 (>60) 05/16/18 05:24 Est GFR (MDRD) Non-Af > 60 (>60) 05/16/18 05:24 Glucose 171 mg/dL (65-99) H 05/16/18 05:24 POC Glucose (mg/dL) 289 mg/dL (65-99) H 05/16/18 20:02 Calcium 8.7 mg/dL (8.5-10.1) 05/16/18 05:24 Corrected Calcium 9.9 mg/dL (8.5-10.1) 05/16/18 05:24 Total Bilirubin 0.70 mg/dL (0.2-1.0) 05/16/18 05:24 AST 16 Units/L (15-37) 05/16/18 05:24 ALT 12 Units/L (12-78) 05/16/18 05:24 Alkaline Phosphatase 52 Units/L (46-116) 05/16/18 05:24 Total Protein 6.2 g/dL (6.4-8.2) L 05/16/18 05:24 Albumin 2.5 g/dL (3.4-5.0) L 05/16/18 05:24 Globulin 3.7 g/dL (2.5-4.5) 05/16/18 05:24 Albumin/Globulin Ratio 0.7 Ratio (1.1-2.1) L 05/16/18 05:24 Specimen Type Catherized urine 05/15/18 20:03 Urine Color Pale yellow (YELLOW) 05/15/18 20:03 Urine Appearance Cloudy (CLEAR) 05/15/18 20:03 Urine pH 6.0 (5.0 - 8.0) 05/15/18 20:03 Ur Specific [place] 1.005 (1.000-1.030) 05/15/18 20:03 Urine Protein Negative (NEGATIVE) 05/15/18 20:03 Urine Glucose (UA) 3+ (NEGATIVE) 05/15/18 20:03 Urine Ketones Negative (NEGATIVE) 05/15/18 20:03 Urine Occult Blood 1+ (NEGATIVE) 05/15/18 20:03 Urine Nitrite Negative (NEGATIVE) 05/15/18 20:03 Urine Bilirubin Negative (NEGATIVE) 05/15/18 20:03 Urine Urobilinogen Normal (NORMAL) 05/15/18 20:03 Ur Leukocyte Esterase 2+ (NEGATIVE) 05/15/18 20:03 Urine RBC 3-5 /HPF (NONE SEEN) 05/15/18 20:03 Urine WBC 10-20 /HPF (NONE SEEN) 05/15/18 20:03 Ur Squamous Epith Cells Few /HPF (NEGATIVE) 05/15/18 20:03 Urine Bacteria 3+ /HPF (NEGATIVE) 05/15/18 20:03 Ur Culture Indicated? 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
[2018-05-16] MEDS: TYLENOL 325 MG TAB PO PRN (22:40)
[2018-05-17 06:37] LABS: BASOPHILS % (AUTO) 0.5 % (0.2-1.0); EOSINOPHILS # (AUTO) 0.2 x10^3/uL (0.0-0.2); EOSINOPHILS % (AUTO) 3.2 % (0.9-2.9); HEMATOCRIT 38.1 % (36.0-47.0); HEMOGLOBIN 12.4 g/dL (12.0-16.0); LYMPHOCYTES # (AUTO) 1.7 X10^3/uL (1.3-2.9); LYMPHOCYTES % (AUTO) 23.8 % (21.0-51.0); MEAN CORPUSCULAR HEMOGLOBIN 27.5 pg (27.0-34.0); MEAN CORPUSCULAR HGB CONC 32.5 g/dL (33.0-35.0); MEAN CORPUSCULAR VOLUME 84.5 fL (80.0-100.0); MEAN PLATELET VOLUME 9.1 fL (7.4-11.0); MONOCYTES # (AUTO) 0.6 x10^3/uL (0.3-0.8); MONOCYTES % (AUTO) 8.9 % (0.0-13.0); NEUTROPHILS # (AUTO) 4.6 x10^3/uL (2.2-4.8); NEUTROPHILS % (AUTO) 63.6 % (42.0-75.0); PLATELET COUNT 244 X10^3/uL (150.0-450.0); RED BLOOD COUNT 4.51 X10^6/uL (3.5-5.4); WHITE BLOOD COUNT 7.3 X10^3/uL (3.6-10.0)
[2018-05-17 06:55] LABS: ALANINE AMINOTRANSFERASE 13 Units/L (12-78); ALBUMIN 2.4 g/dL (3.4-5.0); ALKALINE PHOSPHATASE 56 Units/L (46-116); ASPARTATE AMINO TRANSFERASE 15 Units/L (15-37); BLOOD UREA NITROGEN 13 mg/dL (7-18); CALCIUM 8.3 mg/dL (8.5-10.1); CARBON DIOXIDE 30.1 mmol/L (21-32); CHLORIDE 105 mmol/L (98-107); COR CA(FOR HYPOALB) 9.6 mg/dL (8.5-10.1); COR NA(FOR HYPERGLY) 142 mmol/L (136-145); CREATININE 0.78 mg/dL (0.55-1.02); SODIUM 141 mmol/L (136-145); TOTAL PROTEIN 6.1 g/dL (6.4-8.2); eGFR NON BLACK RACES > 60 (>60)
[2018-05-17] MEDS: ROCEPHIN VIAL 1 GRAM 1 G in NS 100 ML IV + SPIKE MINIBAG* 100 ML IV SCH (08:06)
[2018-05-17] MEDS: COREG TAB 3.125 MG PO SCH ×2 (08:07→21:36)
[2018-05-17] MEDS: LIPITOR TAB 40 MG PO SCH (08:07)
[2018-05-17] MEDS: MICRO K EXTEN CAP 10 MEQ PO SCH (08:07)
[2018-05-17] MEDS: NexIUM PO SCH (08:07)
[2018-05-17] MEDS: CARDIZEM CD 240 MG PO SCH (08:07)
[2018-05-17] MEDS: XARELTO PO SCH (08:07)
[2018-05-17] MEDS: LANOXIN PO SCH (08:08)
[2018-05-17] MEDS: PATIENT'S HOME MEDICATION (Mirabegron [Myrbetriq] 50 MG) PO SCH (08:09)
[2018-05-17] MEDS: SYNTHROID 175 mcg TAB PO SCH (08:11)
[2018-05-17] MEDS: HumuLIN R SUBCUT PRN ×3 (10:54→21:38)
[2018-05-17] MEDS: NS 1000 ML 1,000 ML IV SCH (16:00)
--- NOTE | 2018-05-17 20:49 | PCM.PROG ---
Progress Note - Progress Note for Day of Date of Exam: 05/17/18 - Subjective Subjective: was admitted for atrial fibrillation with RVR. She remains in the intensive care unit, but is no longer on the Cardizem drip. Today , she is alert and oriented, lying in bed on morning rounds. She denies chest pain or dizziness upon rounds. On examination, heart is regular in rate and rhythm. cafeteria monitor reveals HR slightly elevated at 110 bpm. Bilateral lungs are clear to auscultation. Abdomen is round, soft, and noted with mild, suprapubic tenderness to palpation. Normal bowel sounds noted in all quadrants. Her vitals this morning are 97.6-321-05-100%-129/93. Labs were obtained. She remains hemodynamically stable this morning. Urine culture reports growth of gram negative rods. She was started on Rocephin 1gm IV daily. Today, we will continue with current plan of care and continue to monitor her heart rate. Otherwise, We will follow up with AM labs and EKG. - Past Medical Family Social History Past Med/Fam/Surg Hx: No changes since H&P Allergies: Allergies No Known Drug Allergies Allergy (Verified 05/15/18 14:40) - Review of Systems ROS: No change since H&P - Vital Signs and I&O's Vital Signs: Temperature 97.8 F Pulse Rate [Apical] 83 Pulse Rate [Right Radial] 83 Pulse Rate 82 Respiratory Rate 19 Blood Pressure [Left Arm] 135/62 Blood Pressure [Right Arm] 127/61 Blood Pressure 111/42 O2 Sat by Pulse Oximetry 99 Intake and Output: Intake & Output 05/15/18 05/16/18 05/17/18 05/18/18 11:59 11:59 11:59 11:59 Intake Total 980.2 / 980.2 1530 / 1530 732 / 732 Output Total 1250 / 1250 3525 / 3525 Balance -269.8 / -269.8 -1994 / / 732 - Physical Exam Oriented: Normal Eyes: Normal Ear: Normal Nose: Normal Throat: Normal Respiratory: Normal Cardiovascular: Tachycardia, Irregular. negative: S3, S4, Murmur : Normal Auscultation: Bowel Sounds: Normal Palpation: Normal Tenderness: Normal Skin: Normal Musculoskeletal: Normal Psychiatric: Normal Mood Description: Calm Affect: Normal Speech Pattern: Clear, Appropriate - Laboratory and Diagnostics Result Diagrams: 05/17/18 05:29 05/17/18 05:29 Labs: 05/15/18 20:03 Urine,Catheterized Urine Culture - Preliminary Laboratory WBC 7.3 X10^3/uL (3.6-10.0) 05/17/18 05:29 RBC 4.51 X10^6/uL (3.5-5.4) 05/17/18 05:29 Hgb 12.4 g/dL (12.0-16.0) 05/17/18 05:29 Hct 38.1 % (36.0-47.0) 05/17/18 05:29 MCV 84.5 fL (80.0-100.0) 05/17/18 05:29 MCH 27.5 pg (27.0-34.0) 05/17/18 05:29 MCHC 32.5 g/dL (33.0-35.0) L 05/17/18 05:29 RDW 17.0 % (11.6-16.5) H 05/17/18 05:29 Plt Count 244 X10^3/uL (150.0-450.0) 05/17/18 05:29 MPV 9.1 fL (7.4-11.0) 05/17/18 05:29 Neut % (Auto) 63.6 % (42.0-75.0) 05/17/18 05:29 Lymph % (Auto) 23.8 % (21.0-51.0) 05/17/18 05:29 [place] % (Auto) 8.9 % (0.0-13.0) 05/17/18 05:29 Eos % (Auto) 3.2 % (0.9-2.9) H 05/17/18 05:29 Baso % (Auto) 0.5 % (0.2-1.0) 05/17/18 05:29 Neut # (Auto) 4.6 x10^3/uL (2.2-4.8) 05/17/18 05:29 Lymph # (Auto) 1.7 X10^3/uL (1.3-2.9) 05/17/18 05:29 [place] # (Auto) 0.6 x10^3/uL (0.3-0.8) 05/17/18 05:29 Eos # (Auto) 0.2 x10^3/uL (0.0-0.2) 05/17/18 05:29 Baso # (Auto) 0.0 X10^3/uL (0.0-0.1) 05/17/18 05:29 Absolute Nucleated RBC 0.0 /100WBC 05/17/18 05:29 Sodium 141 mmol/L (136-145) 05/17/18 05:29 Corrected Sodium 142 mmol/L (136-145) 05/17/18 05:29 Potassium 3.7 mmol/L (3.5-5.1) 05/17/18 05:29 Chloride 105 mmol/L (98-107) 05/17/18 05:29 Carbon Dioxide 30.1 mmol/L (21-32) 05/17/18 05:29 BUN 13 mg/dL (7-18) 05/17/18 05:29 Creatinine 0.78 mg/dL (0.55-1.02) 05/17/18 05:29 Est GFR (MDRD) Af Amer > 60 (>60) 05/17/18 05:29 Est GFR (MDRD) Non-Af > 60 (>60) 05/17/18 05:29 Glucose 156 mg/dL (65-99) H 05/17/18 05:29 POC Glucose (mg/dL) 270 mg/dL (65-99) H 05/17/18 20:01 Calcium 8.3 mg/dL (8.5-10.1) L 05/17/18 05:29 Corrected Calcium 9.6 mg/dL (8.5-10.1) 05/17/18 05:29 Total Bilirubin 0.40 mg/dL (0.2-1.0) 05/17/18 05:29 AST 15 Units/L (15-37) 05/17/18 05:29 ALT 13 Units/L (12-78) 05/17/18 05:29 Alkaline Phosphatase 56 Units/L (46-116) 05/17/18 05:29 Total Protein 6.1 g/dL (6.4-8.2) L 05/17/18 05:29 Albumin 2.4 g/dL (3.4-5.0) L 05/17/18 05:29 Globulin 3.7 g/dL (2.5-4.5) 05/17/18 05:29 Albumin/Globulin Ratio 0.6 Ratio (1.1-2.1) L 05/17/18 05:29 Specimen Type Catherized urine 05/15/18 20:03 Urine Color Pale yellow (YELLOW) 05/15/18 20:03 Urine Appearance Cloudy (CLEAR) 05/15/18 20:03 Urine pH 6.0 (5.0 - 8.0) 05/15/18 20:03 Ur Specific [place] 1.005 (1.000-1.030) 05/15/18 20:03 Urine Protein Negative (NEGATIVE) 05/15/18 20:03 Urine Glucose (UA) 3+ (NEGATIVE) 05/15/18 20:03 Urine Ketones Negative (NEGATIVE) 05/15/18 20:03 Urine Occult Blood 1+ (NEGATIVE) 05/15/18 20:03 Urine Nitrite Negative (NEGATIVE) 05/15/18 20:03 Urine Bilirubin Negative (NEGATIVE) 05/15/18 20:03 Urine Urobilinogen Normal (NORMAL) 05/15/18 20:03 Ur Leukocyte Esterase 2+ (NEGATIVE) 05/15/18 20:03 Urine RBC 3-5 /HPF (NONE SEEN) 05/15/18 20:03 Urine WBC 10-20 /HPF (NONE SEEN) 05/15/18 20:03 Ur Squamous Epith Cells Few /HPF (NEGATIVE) 05/15/18 20:03 Urine Bacteria 3+ /HPF (NEGATIVE) 05/15/18 20:03 Ur Culture Indicated? Yes/culture set up 05/15/18 20:03 Digoxin 0.41 ng/mL (0.9-2) L 05/16/18 05:24 - Plan (1) Atrial fibrillation with rapid ventricular response Status: Acute Plan: resume home medications, front desk monitor, supplemental oxygen, continue to monitor (2) Urinary tract infection Status: Acute Qualifiers: Urinary tract infection type: acute cystitis Hematuria presence: without hematuria Qualified Code(s): N30.00 - Acute cystitis without hematuria Plan: rocephin 1gm iv daily, continue to monitor
[2018-05-17] MEDS: SNACK - Diabetic Appropriate PO SCH (21:35)
[2018-05-17] MEDS: COLACE CAP 100 MG PO SCH (21:35)
[2018-05-17] MEDS: TYLENOL 325 MG TAB PO PRN (21:37)
[2018-05-17] MEDS: ULTRAM PO PRN (21:37)
[2018-05-18] MEDS: HumuLIN R SUBCUT PRN ×2 (05:54→11:38)
[2018-05-18 06:28] LABS: BASOPHILS # (AUTO) 0.1 X10^3/uL (0.0-0.1); BASOPHILS % (AUTO) 1.1 % (0.2-1.0); EOSINOPHILS # (AUTO) 0.2 x10^3/uL (0.0-0.2); EOSINOPHILS % (AUTO) 2.3 % (0.9-2.9); HEMATOCRIT 37.7 % (36.0-47.0); HEMOGLOBIN 12.3 g/dL (12.0-16.0); LYMPHOCYTES # (AUTO) 1.6 X10^3/uL (1.3-2.9); LYMPHOCYTES % (AUTO) 23.5 % (21.0-51.0); MEAN CORPUSCULAR HEMOGLOBIN 27.7 pg (27.0-34.0); MEAN CORPUSCULAR HGB CONC 32.5 g/dL (33.0-35.0); MEAN CORPUSCULAR VOLUME 85.3 fL (80.0-100.0); MONOCYTES # (AUTO) 0.6 x10^3/uL (0.3-0.8); MONOCYTES % (AUTO) 8.5 % (0.0-13.0); NEUTROPHILS # (AUTO) 4.5 x10^3/uL (2.2-4.8); NEUTROPHILS % (AUTO) 64.6 % (42.0-75.0); PLATELET COUNT 251 X10^3/uL (150.0-450.0); RED BLOOD COUNT 4.42 X10^6/uL (3.5-5.4); RED CELL DISTRIBUTION WIDTH 16.7 % (11.6-16.5); WHITE BLOOD COUNT 6.9 X10^3/uL (3.6-10.0)
[2018-05-18 06:52] LABS: ALANINE AMINOTRANSFERASE 10 Units/L (12-78); ALBUMIN 2.3 g/dL (3.4-5.0); ALKALINE PHOSPHATASE 53 Units/L (46-116); ASPARTATE AMINO TRANSFERASE 13 Units/L (15-37); BLOOD UREA NITROGEN 13 mg/dL (7-18); CALCIUM 8.3 mg/dL (8.5-10.1); CARBON DIOXIDE 28.5 mmol/L (21-32); CHLORIDE 105 mmol/L (98-107); COR CA(FOR HYPOALB) 9.7 mg/dL (8.5-10.1); COR NA(FOR HYPERGLY) 142 mmol/L (136-145); CREATININE 0.67 mg/dL (0.55-1.02); SODIUM 140 mmol/L (136-145); TOTAL PROTEIN 5.9 g/dL (6.4-8.2); eGFR NON BLACK RACES > 60 (>60)
[2018-05-18] MEDS: LANOXIN PO SCH (08:30)
[2018-05-18] MEDS: MICRO K EXTEN CAP 10 MEQ PO SCH (08:30)
[2018-05-18] MEDS: NexIUM PO SCH (08:30)
[2018-05-18] MEDS: CARDIZEM CD 240 MG PO SCH (08:30)
[2018-05-18] MEDS: COREG TAB 3.125 MG PO SCH (08:30)
[2018-05-18] MEDS: XARELTO PO SCH (08:30)
[2018-05-18] MEDS: LIPITOR TAB 40 MG PO SCH (08:30)
[2018-05-18] MEDS: PATIENT'S HOME MEDICATION (Mirabegron [Myrbetriq] 50 MG) PO SCH (08:35)
[2018-05-18] MEDS: ROCEPHIN VIAL 1 GRAM 1 G in NS 100 ML IV + SPIKE MINIBAG* 100 ML IV SCH (08:44)
[2018-05-18] MEDS: SYNTHROID 175 mcg TAB PO SCH (08:44)
[2018-05-18 14:17] VITALS: BP 140/63
--- NOTE | 2018-05-20 07:15 | DR.GENAD ---
HPI Time Seen Time Seen by Provider: 05/15/18 16:02 PCP Primary Care Physician: katie Complaint/Symptoms Chief Complaint Doctors Comments: Patient presented to the ED for evaluation of a fast heart rate after being evaluated by home health nurse. Patient was discharged from the hospital three days ago with a diagnosis Atrial Fibrillation. Patient admits to not taking the coreg .125 times 2-3 doses and today ;home health nurse told her to come to the hospital for evaluation. Patient denies being short of breath or having chest pain. Chief Complaint:: home health nurse told her that her heart rate was 160 so the family brought her to the er. Source History Provided: Patient Mode of Arrival Mode of Arrival: Ambulatory Timing Onset of Chief Complaint: 05/15/18 PMH PMH Past Medical History: Yes Past Medical History: Anemia, Angina, Anxiety, Arthritis, COPD, Coronary Artery Disease, CVA, Depression, Diabetes, Dyslipidemia, GERD, Hypertension, Hypothyroidism and MA Past Surgical History: Yes Surgical History: Cholecystectomy and Other Family History History of Family Medical Conditions: Yes Family Medical History: Diabetes Mellitus and Cancer Social History Does any household member use tobacco: No Alcohol Use: None Do you use any recreational Drugs:: No Lives With: Family Lives Where: Home infectious screening In the last 2 months have you had wt loss of >10#?: NO Have you had fever, night sweats or hemotysis?: No Have you traveled outside the country in the last 6 months?: No Isolation: Standard PE Vital Signs Vitals: Temperature 98.9 F Pulse Rate [Apical] 85 Pulse Rate [Right Radial] 83 Pulse Rate 107 Respiratory Rate 21 Blood Pressure [Left Arm] 135/62 Blood Pressure [Right Arm] 140/63 Blood Pressure 111/42 O2 Sat by Pulse Oximetry 97 General General Appearance: Alert and In No Apparent Distress Head Head Exam: Normal Inspection and Atraumatic Eyes Eye exam: Normal Appearance, PERRL and EOMI ENT ENT Exam: Normal Exam, Normal Oropharynx, Mucous Membranes Moist and TM's Normal Bilaterally External Ear Exam: Normal External Inspection and Auricular Hematoma TM/Canal Exam: Bilateral: Normal Nose Exam: Normal Nose Exam Mouth Exam: negative Normal Inspection, Drooling, Trismus, Lip Swelling, Tongue Elevation, Tongue Swelling, Laceration and Other Throat Exam: Normal Inspection Neck Neck Exam: Normal Inspection and Full ROM Respiratory Respiratory Exam: Normal Lung Sounds Bilat Respiratory Exam: Bilateral: Clear to Auscultation Cardiovascular Cardiovascular Exam: Tachycardia (167) Abdominal Exam Abdominal Exam: Normal Inspection, Normal Bowel Sounds and Hyperactive Bowel Sounds Abdominal Tenderness: negative RUQ, RLQ, LUQ, LLQ, Epigastrium and Diffuse Extremities Extremities Exam: Normal Inspection and Full ROM Back Back Exam: Normal Inspection and Full ROM Neurologic Neurological Exam: Alert, Oriented X3 and CN II-XII Intact Psychiatric Psychiatric Exam: Normal Affect and Normal Mood Skin Skin Exam: Warm, Dry, Intact and Normal Color COURSE Treatment Treatment: Patient took normal dose of coreg prior to coming to the hospital and once her she was given cardiazem 10mg IV. Her heart rate continues to be 80s and asymptomatic. Reevaluation 2nd: Resolved Education/Counseling Education Comments: Patient istructed to Not miss dose of her hypertension medication. ROR Labs Reviewed Result Diagrams: 05/18/18 05:38 05/18/18 05:38 Laboratory: 05/15/18 20:03 Urine,Catheterized Urine Culture - Final Escherichia Coli WBC 6.9 X10^3/uL (3.6-10.0) 05/18/18 05:38 RBC 4.42 X10^6/uL (3.5-5.4) 05/18/18 05:38 Hgb 12.3 g/dL (12.0-16.0) 05/18/18 05:38 Hct 37.7 % (36.0-47.0) 05/18/18 05:38 MCV 85.3 fL (80.0-100.0) 05/18/18 05:38 MCH 27.7 pg (27.0-34.0) 05/18/18 05:38 MCHC 32.5 g/dL (33.0-35.0) L 05/18/18 05:38 RDW 16.7 % (11.6-16.5) H 05/18/18 05:38 Plt Count 251 X10^3/uL (150.0-450.0) 05/18/18 05:38 MPV 9.0 fL (7.4-11.0) 05/18/18 05:38 Neut % (Auto) 64.6 % (42.0-75.0) 05/18/18 05:38 Lymph % (Auto) 23.5 % (21.0-51.0) 05/18/18 05:38 [place] % (Auto) 8.5 % (0.0-13.0) 05/18/18 05:38 Eos % (Auto) 2.3 % (0.9-2.9) 05/18/18 05:38 Baso % (Auto) 1.1 % (0.2-1.0) H 05/18/18 05:38 Neut # (Auto) 4.5 x10^3/uL (2.2-4.8) 05/18/18 05:38 Lymph # (Auto) 1.6 X10^3/uL (1.3-2.9) 05/18/18 05:38 [place] # (Auto) 0.6 x10^3/uL (0.3-0.8) 05/18/18 05:38 Eos # (Auto) 0.2 x10^3/uL (0.0-0.2) 05/18/18 05:38 Baso # (Auto) 0.1 X10^3/uL (0.0-0.1) 05/18/18 05:38 Absolute Nucleated RBC 0.1 /100WBC 05/18/18 05:38 Sodium 140 mmol/L (136-145) 05/18/18 05:38 Corrected Sodium 142 mmol/L (136-145) 05/18/18 05:38 Potassium 3.7 mmol/L (3.5-5.1) 05/18/18 05:38 Chloride 105 mmol/L (98-107) 05/18/18 05:38 Carbon Dioxide 28.5 mmol/L (21-32) 05/18/18 05:38 BUN 13 mg/dL (7-18) 05/18/18 05:38 Creatinine 0.67 mg/dL (0.55-1.02) 05/18/18 05:38 Est GFR (MDRD) Af Amer > 60 (>60) 05/18/18 05:38 Est GFR (MDRD) Non-Af > 60 (>60) 05/18/18 05:38 Glucose 194 mg/dL (65-99) H 05/18/18 05:38 POC Glucose (mg/dL) 267 mg/dL (65-99) H 05/18/18 11:23 Calcium 8.3 mg/dL (8.5-10.1) L 05/18/18 05:38 Corrected Calcium 9.7 mg/dL (8.5-10.1) 05/18/18 05:38 Total Bilirubin 0.40 mg/dL (0.2-1.0) 05/18/18 05:38 AST 13 Units/L (15-37) L 05/18/18 05:38 ALT 10 Units/L (12-78) L 05/18/18 05:38 Alkaline Phosphatase 53 Units/L (46-116) 05/18/18 05:38 Total Protein 5.9 g/dL (6.4-8.2) L 05/18/18 05:38 Albumin 2.3 g/dL (3.4-5.0) L 05/18/18 05:38 Globulin 3.6 g/dL (2.5-4.5) 05/18/18 05:38 Albumin/Globulin Ratio 0.6 Ratio (1.1-2.1) L 05/18/18 05:38 Specimen Type Catherized urine 05/15/18 20:03 Urine Color Pale yellow (YELLOW) 05/15/18 20:03 Urine Appearance Cloudy (CLEAR) 05/15/18 20:03 Urine pH 6.0 (5.0 - 8.0) 05/15/18 20:03 Ur Specific [place] 1.005 (1.000-1.030) 05/15/18 20:03 Urine Protein Negative (NEGATIVE) 05/15/18 20:03 Urine Glucose (UA) 3+ (NEGATIVE) 05/15/18 20:03 Urine Ketones Negative (NEGATIVE) 05/15/18 20:03 Urine Occult Blood 1+ (NEGATIVE) 05/15/18 20:03 Urine Nitrite Negative (NEGATIVE) 05/15/18 20:03 Urine Bilirubin Negative (NEGATIVE) 05/15/18 20:03 Urine Urobilinogen Normal (NORMAL) 05/15/18 20:03 Ur Leukocyte Esterase 2+ (NEGATIVE) 05/15/18 20:03 Urine RBC 3-5 /HPF (NONE SEEN) 05/15/18 20:03 Urine WBC 10-20 /HPF (NONE SEEN) 05/15/18 20:03 Ur Squamous Epith Cells Few /HPF (NEGATIVE) 05/15/18 20:03 Urine Bacteria 3+ /HPF (NEGATIVE) 05/15/18 20:03 Ur Culture Indicated? Yes/culture set up 05/15/18 20:03 Digoxin 0.41 ng/mL (0.9-2) L 05/16/18 05:24 Diagnosis Discharge Problem: FHx: SVT (supraventricular tachycardia), Hypertension Instructions Instructions: Chronic Obstructive Pulmonary Disease Exacerbation, [id number] Antibiotic Medicine, Adult, Eoxm-bo-Dpqm Urinary Tract Infection, Adult, Aidq-lr-Ppeh Hypertension, Afgf-mo-Lqer Atrial Fibrillation, Grkz-[id number] Forms: Patient Portal
--- NOTE | 2018-06-26 14:07 | DR.CARTERD ---
- Discharge Summary for: Discharge Summary for Date of:: 05/18/18 - Admission Date Date of Admission: 05/15/18 - Admission Diagnoses Admission Diagnosis: (1) Atrial fibrillation with rapid ventricular response (2) Urinary tract infection - Discharge Date Discharge Date: 05/18/18 - Discharge Diagnoses Discharge Diagnosis: (1) Atrial fibrillation with rapid ventricular response (2) E. Coli Urinary tract infection - Hospital Course Hospital Course: Day one, Ms. Grijalva is an 82 year old patient of ours. She was released from the hospital earlier this week for treatment of atrial fibrillation with rvr. She returned to our office with same complaints. On arrival vitals were: 98.7-16 -168-98%-111/42. Labs obtained. Abnormal values included: Sodium 134, Creatinine 1.29, Glucose 408, Urinalysis: Wbc 10-20, RBC 3-5, Leuk 2+, Bacteria 3+, Occult blood 1+. An ekg was obtained and revealed: wide qrs tachycardia hr 167. She was started on a Cardizem drip and admitted to the Intensive Care Unit on the human resource advisor. We continued to monitor. Day two, was admitted for atrial fibrillation with RVR. She was placed in the intensive care unit on a Cardizem drip. She was alert and oriented , lying in bed on morning rounds. She denied chest pain or dizziness. She did report shortness of breath at times, but reported improvement since admission. Patient admitted to not having her medicines to take at home after her discharge earlier in the week. She reported ordering them from a mail pharmacy, but had not received them yet. On examination, heart was regular in rate and rhythm. patch press operator revealed HR in the 70s. Bilateral lungs were clear to auscultation. Abdomen was round, soft, and non-tender with normal bowel sounds noted in all quadrants. Her vitals were 98.1-78-27-100%-116/57. Labs were obtained and wnl. We resumed her PO Cardizem, digoxin, Xarelto, and coreg. We then discontinued the Cardizem drip and continued to monitor. Day three, She remained in the intensive care unit, but was no longer on the Cardizem drip. She was alert and oriented, lying in bed on morning rounds. She denied chest pain or dizziness upon rounds. On examination, heart was regular in rate and rhythm. patch press operator revealed HR slightly elevated at 110 bpm. Bilateral lungs were clear to auscultation. Abdomen was round, soft, and noted with mild, suprapubic tenderness to palpation. Normal bowel sounds noted in all quadrants. Her vitals were 97.9-770-18-100%-129/93. Labs were obtained and wnl. Urine culture reported growth of gram negative rods. She was started on Rocephin 1gm IV daily. We continued treatment and continued to monitor her heart rate. Day four, Final urine culture reported E. Coli. Heart rate noted in the 80's. She denied shortness of breath, dizziness, or chest pain. Vital signs stable. Labs wnl. We planned for discharge with oral antibiotics according to culture and sensitivity. Labs: Microbiology 05/15/18 20:03 Urine,Catheterized Urine Culture - Final Escherichia Coli - Discharge Medications Discharge Medications: Home Medication List esomeprazole magnesium 40 mg PO DAILY 05/15/18 [History] levothyroxine 175 mcg PO DAILY 05/15/18 [History] lisinopril-hydrochlorothiazide 1 tab PO DAILY 05/15/18 [History] potassium chloride 10 meq PO DAILY 05/15/18 [History] diltiazem HCl [Cardizem CD] 1 cap PO DAILY 05/16/18 [History] insulin glargine [Lantus U-100 Insulin] 15 unit SUBCUT BID 05/18/18 [History] levofloxacin [Levaquin] 500 mg PO DAILY #10 tab 05/18/18 [Rx] Prescriptions: levofloxacin [Levaquin] [place] Home medications atorvastatin 40 mg PO QDAY 05/10/18 mirabegron [Myrbetriq] 50 mg PO QDAY 05/10/18 rivaroxaban [Xarelto] 20 mg PO QDAY 05/10/18 carvedilol [Coreg] 3.125 mg PO BID #60 tab 05/13/18 digoxin [Lanoxin] 0.125 mg PO QDAY #30 tab 05/13/18 - Discharge Disposition Discharge Disposition: Patient is to follow up in our office in one week.
== END 2018-05-18 14:52 | disposition home health service (06) | DRG 309 ==
LOC: ER 14:39 → ICU 18:02
PROVIDERS: ADMIT Internal Medicine; ATTEND Internal Medicine
DX: E11.65 Type 2 diabetes mellitus with hyperglycemia; I48.91 Unspecified atrial fibrillation; R26.89 Other abnormalities of gait and mobility; N30.00 Acute cystitis without hematuria; E78.2 Mixed hyperlipidemia; K21.9 Gastro-esophageal reflux disease without esophagitis; F41.8 Other specified anxiety disorders; B96.29 Other Escherichia coli [E. coli] as the cause of diseases classified elsewhere; I25.10 Atherosclerotic heart disease of native coronary artery without angina pectoris; I47.1 Supraventricular tachycardia; R94.31 Abnormal electrocardiogram [ECG] [EKG]; I10 Essential (primary) hypertension; F32.89 Other specified depressive episodes; R06.02 Shortness of breath
CPT/HCPCS: 36415; 80048; 80053; 80162; 81001; 85025; 87086; 87088; 87186; 93005; 93041; 96365; 96367; 96374; 96375; 97162; 97167; 97535; 99283; 99285; A4222; J0696; J1815; J3490; J7030; J7050

== ENCOUNTER 2018-08-08 16:58 | Inpatient (IN) ==
--- NOTE | 2018-08-08 17:28 | DR.GENAD ---
HPI Time Seen Time Seen by Provider: 08/08/18 17:22 PCP Primary Care Physician: MIRIAN FITCH HPI Comment HPI Comment: HOME HEALTH NURSE AND PATIENTS GRAND DAUGHTER NOTED HER HEART RATE TO BE ELEVATED FOR SEVERAL HOURS. PATIENT HAVE HISTORY OF A FIB WITH RVR. Complaint/Symptoms Chief Complaint Doctors Comments: RAPID HEART RATE. Chief Complaint:: PT PRESENTS TO ER WITH C/O HOME HEALTH NURSE SEEING HER AT 1320- AND PTS HR 140'S PTS DAUGHTER CAME HOME AT 1620- AND PTS HR STILL IN THE 140'S PT HAS HX OF AFIB AND BEING ADMITTED 3 TIMES SINCE MARCH FOR AFIB WITH RVR, PT DENIES CP OR SOB ,,BR Nurses notes reviewed Nurses Notes Review: Yes Source History Provided: Patient Mode of Arrival Mode of Arrival: Wheelchair Timing Onset of Chief Complaint: 08/08/18 Came on: Suddenly Duration Duration: Constant Duration: Hours Severity Severity: Moderate Modifying Factors Improves:: USUALLY IMPROVE WITH MEDICATIONS. PMH PMH Past Medical History: Yes Past Medical History: Anemia, Angina, Anxiety, Arthritis, COPD, Coronary Artery Disease, CVA, Depression, Diabetes, Dyslipidemia, GERD, Hypertension, Hypothyroidism and [place] Past Surgical History: Yes Surgical History: Cholecystectomy and Other Family History History of Family Medical Conditions: Yes Family Medical History: Diabetes Mellitus and Cancer Social History Does patient currently use any type of tobacco product: No Have you used tobacco products in the last 12 months: No Type of Tobacco Use: None Does any household member use tobacco: No Alcohol Use: None Do you use any recreational Drugs:: No Lives With: Family Lives Where: Home infectious screening In the last 2 months have you had wt loss of >10#?: NO Have you had fever, night sweats or hemotysis?: No Have you traveled outside the country in the last 6 months?: No Isolation: Standard ROS Review of Systems Constitutional: Weakness Eyes: No Symptoms Reported ENTM: No Symptoms Reported Respiratoy: Short of Breath (ON EXERSION.) Cardiovascular: Palpitations Gastrointestinal/Abdominal: No Symptoms Reported Genitourinary: No Symptoms Reported Neurological: Weakness Musculoskeletal: No Symptoms Reported Hematologic/Lymphatic: Easy Bleeding and Easy Bruising Endocrine: No Symptoms Reported Psychiatric: No Symptoms Reported All Other Systems: Reviewed and Negative PE Vital Signs Vitals: Temperature 97.6 F Pulse Rate [Left] 75 Pulse Rate 71 Respiratory Rate 25 Blood Pressure [Left Arm] 130/63 Blood Pressure [Right Arm] 140/63 Blood Pressure 146/64 O2 Sat by Pulse Oximetry 98 General Limitations: No Limitations General Appearance: Alert Head Head Exam: Normal Inspection and Atraumatic Eyes Eye exam: Normal Appearance and PERRL ENT ENT Exam: Normal Exam, Normal Oropharynx, Normal External Ear Exam and TM's Normal Bilaterally External Ear Exam: Normal External Inspection TM/Canal Exam: Left: Normal Nose Exam: Normal Nose Exam Mouth Exam: Normal Inspection Throat Exam: Normal Inspection Neck Neck Exam: Normal Inspection and Trachea Midline Chest Chest Inspection: Symmetric Chest Wall Rise Respiratory Respiratory Exam: Bilateral: Clear to Auscultation and Bilateral: Rhonchi Cardiovascular Cardiovascular Exam: Tachycardia Abdominal Exam Abdominal Exam: Normal Bowel Sounds MDM Differential Diagnosis Differential Diagnosis: A FIB WITH RVR, PALPITATION, HTN, COPD. COURSE Treatment Treatment: SEE ORDERS. Education/Counseling Education/Counseling: Patient Educated On: Diagnosis ROR Labs Reviewed Laboratory Results Reviewed?: Yes Result Diagrams: 08/10/18 05:24 08/10/18 05:24 Laboratory: WBC 6.9 X10^3/uL (3.6-10.0) 08/10/18 05:24 RBC 4.73 X10^6/uL (3.5-5.4) 08/10/18 05:24 Hgb 13.0 g/dL (12.0-16.0) 08/10/18 05:24 Hct 40.6 % (36.0-47.0) 08/10/18 05:24 MCV 85.9 fL (80.0-100.0) 08/10/18 05:24 MCH 27.6 pg (27.0-34.0) 08/10/18 05:24 MCHC 32.1 g/dL (33.0-35.0) L 08/10/18 05:24 RDW 15.8 % (11.6-16.5) 08/10/18 05:24 Plt Count 267 X10^3/uL (150.0-450.0) 08/10/18 05:24 MPV 8.9 fL (7.4-11.0) 08/10/18 05:24 Neut % (Auto) 69.4 % (42.0-75.0) 08/10/18 05:24 Lymph % (Auto) 21.5 % (21.0-51.0) 08/10/18 05:24 [place] % (Auto) 5.4 % (0.0-13.0) 08/10/18 05:24 Eos % (Auto) 2.7 % (0.9-2.9) 08/10/18 05:24 Baso % (Auto) 1.0 % (0.2-1.0) 08/10/18 05:24 Neut # (Auto) 4.8 x10^3/uL (2.2-4.8) 08/10/18 05:24 Lymph # (Auto) 1.5 X10^3/uL (1.3-2.9) 08/10/18 05:24 [place] # (Auto) 0.4 x10^3/uL (0.3-0.8) 08/10/18 05:24 Eos # (Auto) 0.2 x10^3/uL (0.0-0.2) 08/10/18 05:24 Baso # (Auto) 0.1 X10^3/uL (0.0-0.1) 08/10/18 05:24 Absolute Nucleated RBC 0.1 /100WBC 08/10/18 05:24 Sodium 141 mmol/L (136-145) 08/10/18 05:24 Corrected Sodium 145 mmol/L (136-145) 08/10/18 05:24 Potassium 4.3 mmol/L (3.5-5.1) 08/10/18 05:24 Chloride 107 mmol/L (98-107) 08/10/18 05:24 Carbon Dioxide 25.3 mmol/L (21-32) 08/10/18 05:24 BUN 10 mg/dL (7-18) 08/10/18 05:24 Creatinine 0.82 mg/dL (0.55-1.02) 08/10/18 05:24 Est GFR (MDRD) Af Amer > 60 (>60) 08/10/18 05:24 Est GFR (MDRD) Non-Af > 60 (>60) 08/10/18 05:24 Glucose 261 mg/dL (65-99) H 08/10/18 05:24 POC Glucose (mg/dL) 248 mg/dL (65-99) H 08/10/18 05:22 Calcium 8.0 mg/dL (8.5-10.1) L 08/10/18 05:24 Corrected Calcium 9.4 mg/dL (8.5-10.1) 08/10/18 05:24 Magnesium 2.1 mg/dL (1.7-2.9) 08/10/18 05:24 Total Bilirubin 0.40 mg/dL (0.2-1.0) 08/10/18 05:24 AST 14 Units/L (15-37) L 08/10/18 05:24 ALT 12 Units/L (12-78) 08/10/18 05:24 Alkaline Phosphatase 83 Units/L (46-116) 08/10/18 05:24 Creatine Kinase 68 Units/L (26-192) 08/08/18 17:10 CK-MB (CK-2) 1.5 ng/mL (0-4.0) 08/08/18 17:10 CK/CKMB % Calc 2.2 % (<4) 08/08/18 17:10 Troponin I 0.02 ng/mL (0-1.5) 08/08/18 17:10 B-Natriuretic Peptide 122 pg/mL (0-79) H 08/08/18 17:10 Total Protein 6.2 g/dL (6.4-8.2) L 08/10/18 05:24 Albumin 2.2 g/dL (3.4-5.0) L 08/10/18 05:24 Globulin 4.0 g/dL (2.5-4.5) 08/10/18 05:24 Albumin/Globulin Ratio 0.6 Ratio (1.1-2.1) L 08/10/18 05:24 Digoxin 0.45 ng/mL (0.9-2) L 08/08/18 17:10 XRAY XRAY Findings: REPORT NOTED Diagnosis Discharge Problem: Wide-complex tachycardia, History of atrial fibrillation Arrhythmia Qualifiers: Arrhythmia type: atrial fibrillation Atrial fibrillation type: chronic Qualified Code(s): I48.2 - Chronic atrial fibrillation Instructions Instructions: Fall Prevention in the Home, [id number] Chronic Obstructive Pulmonary Disease Exacerbation Diabetes Mellitus and Sick Day Management Atrial Fibrillation Hypertension Forms: Patient Portal
[2018-08-08 17:40] LABS: BASOPHILS # (AUTO) 0.1 X10^3/uL (0.0-0.1); BASOPHILS % (AUTO) 1.2 % (0.2-1.0); EOSINOPHILS # (AUTO) 0.2 x10^3/uL (0.0-0.2); EOSINOPHILS % (AUTO) 2.1 % (0.9-2.9); HEMATOCRIT 42.1 % (36.0-47.0); HEMOGLOBIN 13.6 g/dL (12.0-16.0); LYMPHOCYTES # (AUTO) 2.1 X10^3/uL (1.3-2.9); LYMPHOCYTES % (AUTO) 23.2 % (21.0-51.0); MEAN CORPUSCULAR HEMOGLOBIN 27.8 pg (27.0-34.0); MEAN CORPUSCULAR HGB CONC 32.2 g/dL (33.0-35.0); MEAN CORPUSCULAR VOLUME 86.4 fL (80.0-100.0); MEAN PLATELET VOLUME 8.8 fL (7.4-11.0); MONOCYTES # (AUTO) 0.7 x10^3/uL (0.3-0.8); MONOCYTES % (AUTO) 7.6 % (0.0-13.0); NEUTROPHILS % (AUTO) 65.9 % (42.0-75.0); PLATELET COUNT 309 X10^3/uL (150.0-450.0); RED BLOOD COUNT 4.88 X10^6/uL (3.5-5.4); RED CELL DISTRIBUTION WIDTH 16.2 % (11.6-16.5); WHITE BLOOD COUNT 9.1 X10^3/uL (3.6-10.0)
[2018-08-08 17:58] LABS: CALCIUM 8.5 mg/dL (8.5-10.1); CARBON DIOXIDE 26.3 mmol/L (21-32); CREATININE 1.21 mg/dL (0.55-1.02); TROPONIN I 0.02 ng/mL (0-1.5)
[2018-08-08 18:04] LABS: ALBUMIN 2.7 g/dL (3.4-5.0); CKMB % 2.2 % (<4); COR CA(FOR HYPOALB) 9.5 mg/dL (8.5-10.1); CREATINE KINASE MB 1.5 ng/mL (0-4.0); TOTAL PROTEIN 7.1 g/dL (6.4-8.2)
[2018-08-08] MEDS ORDERED: NS 100 ML IV + SPIKE MINIBAG* 0 ML IV ONE (18:14)
[2018-08-08] MEDS ORDERED: CARDIZEM INJ 50 MG VIAL ONE (18:16)
[2018-08-08] MEDS ORDERED: NS 100 ML IV 100 ML IV ONE ×2 (18:17→19:42)
[2018-08-08] MEDS ORDERED: CARDIZEM INJ 50 MG VIAL IVP ONE (18:27)
[2018-08-08] MEDS ORDERED: CARDIZEM INJ 125 MG VIAL ONE (19:43)
[2018-08-08] MEDS ORDERED: CARDIZEM INJ 125 MG VIAL 125 MG in NS 100 ML IV 100 ML IV PRN (19:44)
[2018-08-08] MEDS ORDERED: NS 1000 ML 1,000 ML ONE (19:48)
[2018-08-08] MEDS ORDERED: NS 1000 ML 1,000 ML IV ONE (19:54)
[2018-08-08] MEDS ORDERED: LANOXIN PO SCH (21:46)
[2018-08-08] MEDS ORDERED: ULTRAM PO PRN (21:46)
[2018-08-08] MEDS ORDERED: LANTUS SC SCH (21:46)
[2018-08-08] MEDS ORDERED: LIPITOR TAB 40 MG PO SCH (21:46)
[2018-08-08] MEDS ORDERED: XARELTO PO SCH (21:46)
[2018-08-08] MEDS ORDERED: BUTT CREAM (COMPOUND) ONE (22:28)
--- NOTE | 2018-08-08 22:30 | RAD ---
HISTORY: Tachycardia, history of atrial fibrillation, dyspnea Study: Single-view chest Comparison: May 10, 2018 Findings: Prior sternotomy and aortic atherosclerosis are noted. There is chronic elevation of the right hemidiaphragm. The trachea is midline. The cardiac silhouette is enlarged. The lungs are clear without focal mass or consolidation. There is no effusion or pneumothorax. Generalized osteopenia is noted. There has been previous right acromioplasty versus resorption of the distal clavicle. Thoracic spondylosis is noted. IMPRESSION: Cardiomegaly without definite acute cardiopulmonary. Reported By:
[2018-08-08] MEDS: COREG TAB 3.125 MG PO SCH (23:06)
[2018-08-08] MEDS: PROTONIX TAB 40 MG PO SCH (23:07)
[2018-08-09 06:37] LABS: BASOPHILS % (AUTO) 0.6 % (0.2-1.0); EOSINOPHILS # (AUTO) 0.2 x10^3/uL (0.0-0.2); EOSINOPHILS % (AUTO) 3.2 % (0.9-2.9); HEMOGLOBIN 12.6 g/dL (12.0-16.0); LYMPHOCYTES # (AUTO) 1.7 X10^3/uL (1.3-2.9); LYMPHOCYTES % (AUTO) 22.1 % (21.0-51.0); MEAN CORPUSCULAR HEMOGLOBIN 27.7 pg (27.0-34.0); MEAN CORPUSCULAR HGB CONC 32.3 g/dL (33.0-35.0); MEAN CORPUSCULAR VOLUME 85.9 fL (80.0-100.0); MEAN PLATELET VOLUME 8.8 fL (7.4-11.0); MONOCYTES # (AUTO) 0.5 x10^3/uL (0.3-0.8); MONOCYTES % (AUTO) 6.4 % (0.0-13.0); NEUTROPHILS # (AUTO) 5.1 x10^3/uL (2.2-4.8); NEUTROPHILS % (AUTO) 67.7 % (42.0-75.0); PLATELET COUNT 257 X10^3/uL (150.0-450.0); RED BLOOD COUNT 4.54 X10^6/uL (3.5-5.4); RED CELL DISTRIBUTION WIDTH 16.2 % (11.6-16.5); WHITE BLOOD COUNT 7.5 X10^3/uL (3.6-10.0)
[2018-08-09 07:03] LABS: ALANINE AMINOTRANSFERASE 12 Units/L (12-78); ALBUMIN 2.2 g/dL (3.4-5.0); ALKALINE PHOSPHATASE 69 Units/L (46-116); ASPARTATE AMINO TRANSFERASE 15 Units/L (15-37); BLOOD UREA NITROGEN 12 mg/dL (7-18); CHLORIDE 106 mmol/L (98-107); COR CA(FOR HYPOALB) 9.4 mg/dL (8.5-10.1); COR NA(FOR HYPERGLY) 141 mmol/L (136-145); CREATININE 0.77 mg/dL (0.55-1.02); MAGNESIUM 1.6 mg/dL (1.7-2.9); SODIUM 141 mmol/L (136-145); TOTAL PROTEIN 5.9 g/dL (6.4-8.2); eGFR NON BLACK RACES > 60 (>60)
[2018-08-09] MEDS ORDERED: DILTIAZEM HCL PO SCH (09:00)
[2018-08-09] MEDS ORDERED: LANOXIN PO SCH (09:00)
[2018-08-09] MEDS ORDERED: SYNTHROID 175 mcg TAB PO SCH (09:00)
[2018-08-09] MEDS ORDERED: XARELTO PO SCH (09:00)
[2018-08-09] MEDS ORDERED: PATIENT'S HOME MEDICATION (Mirabegron [Myrbetriq] 50 MG) PO SCH (09:00)
[2018-08-09] MEDS ORDERED: LIPITOR TAB 40 MG PO SCH (09:00)
[2018-08-09] MEDS: PROTONIX TAB 40 MG PO SCH ×2 (10:04→20:33)
[2018-08-09] MEDS: COREG TAB 3.125 MG PO SCH ×2 (10:08→20:34)
[2018-08-09 11:46] VITALS: BMI 34.8
[2018-08-09] MEDS ORDERED: CARDIZEM INJ 125 MG VIAL 125 MG in NS 100 ML IV 100 ML IV PRN (13:46)
[2018-08-09] MEDS ORDERED: ULTRAM PO PRN (13:46)
[2018-08-09] MEDS: CARDIZEM CD 240 MG PO SCH (17:03)
[2018-08-09] MEDS ORDERED: NS 1000 ML 0 ML ONE (17:58)
--- NOTE | 2018-08-09 18:47 | DR.H&P ---
H&P - History & Physical for Day of: H&P Date: 08/08/18 - Chief Complaint Chief Complaint: TACHYCARDIA - History of Present Illness History of Present Illness: IS A 82 YEAR OLD PATIENT OF OURS WHO PRESENTED TO THE EMERGENCY ROOM WITH COMPLAINTS OF ELEVATED HEART RATE IN THE 140s. PATIENT HAS A KNOWN HISTORY OF ATRIAL FIBRILLATION FOR WHICH SHE IS CURRENTLY TAKING CARDIZEM 240MG PO DAILY. SHE DENIES SHORTNESS OF BREATH OR CHEST PAIN. ON ARRIVAL, VITALS WERE 98.2-143-22-97%-131/82. LABS WERE OBTAINED. ABNORMAL LAB VALUES INCLUDE THE FOLLOWING: SODIUM 135, CREATININE 1.21, GLUCOSE 306, BNP 122, ALBUMIN 2.7, DIGOXIN 0.45. EKG OBTAINED AND REVEALED: WIDE QRS TACHYCARDIA WITH HR 142, RIGHT BUNDLE BRANCH BLOCK. CHEST XRAY REVEALED: CARDIOMEGALY WITHOUT DEFINITE ACUTE CARDIOPULONARY ABNORMALITY. SHE WAS STARTED ON A CARDIZEM DRIP IN THE EMERGENCY ROOM AND ADMITTED FOR FURTHER EVALUATION AND TREATMENT. WE PLANNED TO FOLLOW UP WITH AM LABS AND EKGS AND CONTINUE TO MONITOR. - Past Medical History Past Medical History: Angina, [place], Coronary Artery Disease, Hypertension, Dyslipidemia, Diabetes, Depression, Anxiety, Hypothyroidism, Anemia, CVA, COPD, GERD, Arthritis Additional Medical History: Freq UTI's, PVD - Past Surgical History Surgical History: Angioplasty/Stents, Cholecystectomy - Family History Family Medical History: Diabetes Mellitus, Cancer - Social History Does patient currently use any type of tobacco product: No Have you used tobacco products in the last 12 months: No Type of Tobacco Use: None Does any household member use tobacco: No Alcohol Use: None Drug Use: None - Medications Home Medications: No Known Drug Allergies Allergy (Verified 05/15/18 14:40) CONTINUE taking the following medications pantoprazole 40 mg PO BID 08/08/18 [History] tramadol 50 mg PO BID PRN 08/08/18 [History] - Review of Systems Constitutional: Weakness Eyes: No Symptoms Reported ENT: No Symptoms Reported Respiratory: Shortness of Breath Cardiovascular: See HPI, Palpitations Gastrointestinal: No Symptoms Reported Genitourinary: No Symptoms Reported Musculoskeletal: No Symptoms Reported Skin: No Symptoms Reported Neurological: Weakness - Physical Exam Vital Signs: Temperature 99.6 F Pulse Rate [Left] 75 Pulse Rate 105 Respiratory Rate 20 Blood Pressure [Left Arm] 130/63 Blood Pressure [Right Arm] 140/63 Blood Pressure 139/65 O2 Sat by Pulse Oximetry 98 Oriented: Normal Eyes: Normal Ear: Normal Nose: Normal Throat: Normal Respiratory: Diminished Throughout Cardiovascular: Tachycardia. negative: S3, S4, Murmur : Normal Auscultation: Bowel Sounds: Normal Palpation: Normal Tenderness: Normal Skin: Normal Musculoskeletal: Normal Psychiatric: Normal Mood Description: Calm Affect: Normal Speech Pattern: Clear - Assessment/Plan (1) Wide-complex tachycardia Status: Acute Plan: ADMIT, CARDIZEM DRIP, SUPPLEMENTAL OXYGEN, CONTINUE TO MONITOR (2) History of atrial fibrillation Status: Acute (3) Diabetes mellitus, type 2 Qualifiers: Diabetes mellitus mental health orderly insulin use: with alf use Diabetes mellitus complication status: with unspecified complications Qualified Code(s): E11.8 - Type 2 diabetes mellitus with unspecified complications; 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) use of insulin Status: Chronic Plan: MONITOR OTBS, CONTINUE HOMEM MEDS (4) Hyperlipidemia Qualifiers: Hyperlipidemia type: mixed hyperlipidemia Qualified Code(s): E78.2 - Mixed hyperlipidemia Status: Acute Plan: CONTINUE HOME MEDS (5) Decubitus ulcer, heel Status: Acute (6) Essential hypertension Status: Chronic Plan: CONTINUE HOME MEDS (7) History of CVA (cerebrovascular accident) Status: Chronic Plan: CONTINUE HOME MEDS (8) Hypothyroidism Qualifiers: Hypothyroidism type: acquired Qualified Code(s): E03.9 - Hypothyroidism, unspecified Status: Chronic Plan: CONTINUE HOME MEDS - Allergies Allergies/Adverse Reactions: Allergies Allergy/AdvReac Type Severity Reaction Status Date / Time No Known Drug Allergies Allergy Verified 05/15/18 14:40
[2018-08-09] MEDS ORDERED: SNACK - Diabetic Appropriate PO SCH (20:00)
[2018-08-09] MEDS ORDERED: K-RIDER 10 MEQ/NS 100 ML 10 MEQ/100 ML BAG IV PRN (20:27)
[2018-08-09] MEDS ORDERED: KLOR-CON PO PRN (20:27)
[2018-08-09] MEDS ORDERED: POTASSIUM CHL 60 MEQ/NS 0.45% 500 ML IV PRN (20:27)
[2018-08-09] MEDS ORDERED: MICRO K EXTEN CAP 10 MEQ PO PRN (20:27)
[2018-08-09] MEDS ORDERED: POTASSIUM CHL 40 MEQ/NS 0.45% 500 ML IV PRN (20:27)
[2018-08-09] MEDS ORDERED: K-DUR TAB 20 MEQ PO PRN (20:27)
[2018-08-09] MEDS ORDERED: POTASSIUM CHLORIDE LIQ 20 MEQ UDC PO PRN (20:27)
[2018-08-09] MEDS: HumuLIN R SC PRN (20:32)
[2018-08-09] MEDS: LANTUS SC SCH (20:34)
[2018-08-09] MEDS: MAGNESIUM SULFATE 1 GRAM/100 mL PREMIX 1 GM/100 ML BAG IV PRN (23:19)
[2018-08-10] MEDS: MAGNESIUM SULFATE 1 GRAM/100 mL PREMIX 1 GM/100 ML BAG IV PRN (00:01)
[2018-08-10] MEDS: HumuLIN R SC PRN (05:47)
[2018-08-10 06:12] LABS: BASOPHILS # (AUTO) 0.1 X10^3/uL (0.0-0.1); EOSINOPHILS # (AUTO) 0.2 x10^3/uL (0.0-0.2); EOSINOPHILS % (AUTO) 2.7 % (0.9-2.9); HEMATOCRIT 40.6 % (36.0-47.0); LYMPHOCYTES # (AUTO) 1.5 X10^3/uL (1.3-2.9); LYMPHOCYTES % (AUTO) 21.5 % (21.0-51.0); MEAN CORPUSCULAR HEMOGLOBIN 27.6 pg (27.0-34.0); MEAN CORPUSCULAR HGB CONC 32.1 g/dL (33.0-35.0); MEAN CORPUSCULAR VOLUME 85.9 fL (80.0-100.0); MEAN PLATELET VOLUME 8.9 fL (7.4-11.0); MONOCYTES # (AUTO) 0.4 x10^3/uL (0.3-0.8); MONOCYTES % (AUTO) 5.4 % (0.0-13.0); NEUTROPHILS # (AUTO) 4.8 x10^3/uL (2.2-4.8); NEUTROPHILS % (AUTO) 69.4 % (42.0-75.0); PLATELET COUNT 267 X10^3/uL (150.0-450.0); RED BLOOD COUNT 4.73 X10^6/uL (3.5-5.4); RED CELL DISTRIBUTION WIDTH 15.8 % (11.6-16.5); WHITE BLOOD COUNT 6.9 X10^3/uL (3.6-10.0)
[2018-08-10 06:30] LABS: ALANINE AMINOTRANSFERASE 12 Units/L (12-78); ALBUMIN 2.2 g/dL (3.4-5.0); ALKALINE PHOSPHATASE 83 Units/L (46-116); ASPARTATE AMINO TRANSFERASE 14 Units/L (15-37); BLOOD UREA NITROGEN 10 mg/dL (7-18); CARBON DIOXIDE 25.3 mmol/L (21-32); CHLORIDE 107 mmol/L (98-107); COR CA(FOR HYPOALB) 9.4 mg/dL (8.5-10.1); COR NA(FOR HYPERGLY) 145 mmol/L (136-145); CREATININE 0.82 mg/dL (0.55-1.02); MAGNESIUM 2.1 mg/dL (1.7-2.9); SODIUM 141 mmol/L (136-145); TOTAL PROTEIN 6.2 g/dL (6.4-8.2); eGFR NON BLACK RACES > 60 (>60)
[2018-08-10] MEDS: PROTONIX TAB 40 MG PO SCH (08:49)
[2018-08-10] MEDS: COREG TAB 3.125 MG PO SCH (08:49)
[2018-08-10] MEDS: CARDIZEM CD 240 MG PO SCH (08:50)
[2018-08-10] MEDS: LANTUS SC SCH (08:51)
[2018-08-10] MEDS ORDERED: SYNTHROID 175 mcg TAB PO SCH (09:00)
[2018-08-10] MEDS ORDERED: XARELTO PO SCH (09:00)
[2018-08-10] MEDS ORDERED: PATIENT'S HOME MEDICATION (Mirabegron [Myrbetriq] 50 MG) PO SCH (09:00)
[2018-08-10] MEDS ORDERED: LANOXIN PO SCH (09:00)
[2018-08-10] MEDS ORDERED: LIPITOR TAB 40 MG PO SCH (09:00)
[2018-08-10 12:09] VITALS: BP 146/64
--- NOTE | 2018-09-12 03:30 | DR.CARTERD ---
- Discharge Summary for: Discharge Summary for Date of:: 08/10/18 - Admission Date Date of Admission: 08/08/18 - Admission Diagnoses Admission Diagnosis: (1) Wide-complex tachycardia (2) History of atrial fibrillation (3) Diabetes mellitus, type 2 (4) Hyperlipidemia (5) Decubitus ulcer, heel (6) Essential hypertension (7) History of CVA (cerebrovascular accident) (8) Hypothyroidism - Discharge Date Discharge Date: 08/10/18 - Discharge Diagnoses Discharge Diagnosis: (1) Wide-complex tachycardia (2) History of atrial fibrillation (3) Diabetes mellitus, type 2 (4) Hyperlipidemia (5) Decubitus ulcer, heel (6) Essential hypertension (7) History of CVA (cerebrovascular accident) (8) Hypothyroidism - Hospital Course Hospital Course: DAY ONE, IS A 82 YEAR OLD PATIENT OF OURS WHO PRESENTED TO THE EMERGENCY ROOM WITH COMPLAINTS OF ELEVATED HEART RATE IN THE 140s. PATIENT HAS A KNOWN HISTORY OF ATRIAL FIBRILLATION FOR WHICH SHE IS CURRENTLY TAKING CARDIZEM 240MG PO DAILY. SHE DENIED SHORTNESS OF BREATH OR CHEST PAIN. ON ARRIVAL, VITALS WERE 98.2-143-22-97%-131/82. LABS WERE OBTAINED. ABNORMAL LAB VALUES INCLUDED THE FOLLOWING: SODIUM 135, CREATININE 1.21, GLUCOSE 306, BNP 122, ALBUMIN 2.7, DIGOXIN 0.45. EKG OBTAINED AND REVEALED: WIDE QRS TACHYCARDIA WITH HR 142, RIGHT BUNDLE BRANCH BLOCK. CHEST XRAY REVEALED: CARDIOMEGALY WITHOUT DEFINITE ACUTE CARDIOPULONARY ABNORMALITY. SHE WAS STARTED ON A CARDIZEM DRIP IN THE EMERGENCY ROOM AND ADMITTED FOR FURTHER EVALUATION AND TREATMENT. WE PLANNED TO FOLLOW UP WITH AM LABS AND EKGS AND CONTINUED TO MONITOR. DAY THREE, PATIENT SITTING UP IN BED ALERT AND ORIENTED DURING MORNING ROUNDS. PATIENT VOICED NO COMPLAINTS AT THIS TIME. CARDIZEM DRIP HAS BEEN DISCONTINUED AND PATIENT HAS MAINTAINED A HEART IN THE 70'S AND 80'S SINCE MIDNIGHT. VITALS WERE STABLE. LABS WERE WITHIN NORMAL LIMITS. WE PLANNED FOR DISCHARGE. INSTRUCTIONS FOR MEDICATIONS AND FOLLOW UP WERE DISCUSSED WITH PATIENT AND FAMILY, BOTH VOICED UNDERSTANDING. PATIENT WAS DISCHARGED HOME IN STABLE CONDITION WITH FAMILY. - Discharge Medications Discharge Medications: Home Medication List pantoprazole 40 mg PO BID 08/08/18 [History] tramadol 50 mg PO BID PRN 08/08/18 [History] Prescriptions: Ambulatory Orders atorvastatin 40 mg PO QDAY 08/14/18 mirabegron [Myrbetriq] 50 mg PO QDAY 05/10/18 rivaroxaban [Xarelto] 20 mg PO QDAY 05/10/18 carvedilol [Coreg] 3.125 mg PO BID #60 tab 05/13/18 digoxin [Lanoxin] 0.125 mg PO QDAY #30 tab 05/13/18 levothyroxine 175 mcg PO DAILY 05/15/18 potassium chloride 10 meq PO DAILY 05/15/18 diltiazem HCl [Cardizem CD] 240 cap PO DAILY 05/16/18 insulin glargine [Lantus U-100 Insulin] 30 unit SUBCUT BID 05/18/18 - Discharge Disposition Discharge Disposition: PATIENT TO FOLLOW UP IN OUR OFFICE IN ONE WEEK.
== END 2018-08-10 11:11 | disposition home health service (06) | DRG 310 ==
LOC: ER 16:59 → ICU 20:35
PROVIDERS: ADMIT Internal Medicine; ATTEND Internal Medicine
CPT/HCPCS: 36415; 71010; 71045; 80053; 80162; 82550; 82553; 83735; 83880; 84484; 85025; 93005; 96365; 96374; 96375; 97163; 97167; 99284; 99285; A4222; J1815; J3475; J3490; J7030; J7050

== ENCOUNTER 2019-04-03 19:16 | Inpatient (IN) ==
--- NOTE | 2019-04-03 20:11 | DR.DIZZY ---
HPI Time seen Time Seen by Provider: 04/03/19 19:54 HPI Comment HPI Comment: PATIENT IS 83YR OLD WHITE FEMALE IS WITH HISTORY OF MULTIPLE MEDICAL ILLNESSES INCLUDING ANEMIA, CAD, COPD AND PREVIOUS CVA IS IN THE EMERGENCY ROOM WITH GENERALIZE WEAKNESS AND AMS. PATIENT ALSO FALLING FREQUENTLY AT HOME. PATIENT SAID SHE IS DEVELOPING DECUBITUS ULCER IN THE SACRAL AREA AND IS PAINFUL. NO FEVER. SHE IS SOB ON EXERTION. DAUGHTER SAID PATIENTS SPEECH WAS SLURRED TONIGHT AND STARTED TO CLEAR IN THE ER. Complaint Chief Complaint Doctor Comments: GENERALIZED WEAKNESS TIMES FEW WEEKS AND AMS NOTED TODAY. Chief Complaint:: weakness Self Treatment fo Chief Complaint: none Nurses Notes Reviewed Nurses Notes Review: Yes Source History Provided: Patient and Family Member Mode of Arrival Mode of Arrival: Wheelchair Timing Onset of Chief Complaint: 04/03/19 Came on: Suddenly Duration Duration: Constant Duration: Days Location of Weakness Weakness Location: Generalized Context Onset: At rest Does pt take pot. toxic medication?: No History of: Anemia, CVA, DM, [place] and TIA Stroke Symptoms: Acute confusion, Slurring and Dizziness Severity Severity: Abnormal activity level Associated signs and symptoms Associated Signs and Symptoms: Weak and Difficult Speech Other history Other history: CAD, HTN, DMM PREVIOUS STROKE. PMH PMH Past Medical History: Yes Past Medical History: Anemia, Angina, Anxiety, Arthritis, COPD, Coronary Artery Disease, CVA, Depression, Diabetes, Dyslipidemia, GERD, Hypertension, Hypothyroidism and [place] Past Surgical History: Yes Surgical History: Cholecystectomy and Other Past Surgical History Comment: stents and bypass surgery Family History History of Family Medical Conditions: No Family Medical History: Diabetes Mellitus and Cancer Social History Does patient currently use any type of tobacco product: No Have you used tobacco products in the last 12 months: No Type of Tobacco Use: None Does any household member use tobacco: No Alcohol Use: None Do you use any recreational Drugs:: No Lives With: Spouse Lives Where: Home infectious screening In the last 2 months have you had wt loss of >10#?: NO Have you had fever, night sweats or hemotysis?: No Have you traveled outside the country in the last 6 months?: No Isolation: Standard ROS Review of Systems Constitutional: See HPI, Weakness, Fatigue and Loss of Appetite; negative Fever Eyes: No Symptoms Reported and See HPI; negative Eye Pain, Blurred Vision, Tearing, Discharge and Diplopia ENTM: See HPI; negative Ear Pain, Ear Discharge, Nose Congestion and Throat Pain Respiratoy: See HPI, Non-Productive Cough, Short of Breath and Wheezing Cardiovascular: See HPI and Edema; negative Chest Pain and Palpitations Gastrointestinal/Abdominal: See HPI and Nausea; negative Abdominal Pain, Constipation, Diarrhea and Vomiting Genitourinary: See HPI and Other (URINARY INCONTINENCE.); negative Dysuria and Hematuria Neurological: See HPI, Headache, Weakness, Dizziness, Problems Walking and Speech Problem (TRANSIENT SLURRED SPEECH.) Musculoskeletal: See HPI, Back Pain and Muscle Pain; negative Neck Pain Integumentary: See HPI, Change in Color, Dryness and Other (SACRAL DECUBITUS ULCER.); negative [place] Hematologic/Lymphatic: See HPI, Anemia, Easy Bleeding and Easy Bruising; negative Swollen Glands and Lymphadenopathy Endocrine: See HPI and Decreased Appetite; negative Increased Thirst and Increased Urine Psychiatric: See HPI, Depression and Other (AMS) All Other Systems: Reviewed and Negative Unable to Obtain Due To: Altered mental status PE Vital Signs Vitals: Temperature 99.8 F Pulse Rate [Apical] 66 Pulse Rate 71 Respiratory Rate 18 Blood Pressure [Left Arm] 164/69 Blood Pressure [Right Arm] 140/63 Blood Pressure 141/60 O2 Sat by Pulse Oximetry 95 General Limitations: Altered Mental Status General Appearance: Alert and In No Apparent Distress Head Head Exam: Normal Inspection and Atraumatic Eyes Eye exam: Normal Appearance, PERRL and EOMI; negative Scleral Icterus and Conjunctival Injection Pupils: Regular, Round: Bilateral and Reactive: Bilateral Sclera/Conjunctival: Normal Inspection: Bilateral ENT ENT Exam: negative Normal Oropharynx, Normal External Ear Exam and Mucous Membranes Moist Neck Neck Exam: Normal Inspection, Full ROM and Trachea Midline; negative Tenderness, Meningismus and Lymphadenopathy Chest Chest Inspection: Normal Inspection and Symmetric Chest Wall Rise; negative Tenderness Respiratory Respiratory Exam: Normal Lung Sounds Bilat; negative Accessory Muscle Use, Chest Wall Tenderness and Respiratory Distress Respiratory Exam: Bilateral: Rhonchi and Lower: Rhonchi Cardiovascular Cardiovascular Exam: Regular Rate, Normal Rhythm and Normal Heart Sounds; neg ative Systolic Murmur and Diastolic Murmur Abdominal Exam Abdominal Exam: Normal Inspection, Normal Bowel Sounds and Soft; negative Tenderness Rectal Rectal Exam: Deferred Extremeties Extremities Exam: Normal Capillary Refill and Edema; negative Tenderness and Calf Tenderness Back Back Exam: Tenderness and Paraspinal Tenderness; negative (R) CVA Tenderness, (L) CVA Tenderness and Vertebral Tenderness Neurologic Neurological Exam: Alert; negative Motor Sensory Deficit Patient Oriented To: Person and Place; negative Time Speech: Fluid Speech Cranial Nerve Exam: EOM Function (II, III, IV, ): Normal, Facial Sensation (V): Normal, Facial Palsy (VII): Normal, Gag reflex (XI): Normal and Tongue Deviation: Normal Motor Strength - LUE: 5/5 Motor Strength - RUE: 4/5 Motor Strength - LLE: 5/5 Motor Strength - RLE: 4/5 Upper Motor Neuron Exam: Babinski Sign: Normal Psychiatric Psychiatric Exam: Depressed Skin Skin Exam: Dry; negative Erythema (SACRAL DECUBITUS ULCER.) MDM Additional Information Obtained Additional Information Obtained From: Family Differential Diagnosis Differential Diagnosis: CVA, Dehydration, Dysrhythmia, Electrolyte disorder, Hypoglycemia, Myocardial infarction, Pulmonary embolus and TIA COURSE Treatment Treatment: SEE ORDERS. NS 50CC/HR. Consultation Consultation Comments: DISCUSS PATIENT WITH DR. PUTNAM. HE WILL ADMIT PATIENT. 2MINS DISCUSSION. ADMISSION ORDERS DONE. Education/Counseling Education/Counseling: Patient and Family Educated On: Diagnosis ROR Labs Reviewed Laboratory Results Reviewed?: Yes Result Diagrams: 04/03/19 20:23 04/03/19 20:28 Laboratory: WBC 8.3 X10^3/uL (3.6-10.0) 04/03/19 20: RBC 4.54 X10^6/uL (3.5-5.4) 04/03/19 20:23 Hgb 13.7 g/dL (12.0-16.0) 04/03/19 20: Hct 41.3 % (36.0-47.0) 04/03/19 20: MCV 91.0 fL (80.0-100.0) 04/03/19 20:23 MCH 30.2 pg (27.0-34.0) 04/03/19 20: MCHC 33.1 g/dL (33.0-35.0) 04/03/19 20: RDW 14.6 % (11.6-16.5) 04/03/19 20: Plt Count 287 X10^3/uL (150.0-450.0) 04/03/19 20: MPV 9.1 fL (7.4-11.0) 04/03/19 20:23 Neut % (Auto) 76.3 % (42.0-75.0) H 04/03/19 20:23 Lymph % (Auto) 14.5 % (21.0-51.0) L 04/03/19 20:23 [place] % (Auto) 6.7 % (0.0-13.0) 04/03/19 20:23 Eos % (Auto) 1.8 % (0.9-2.9) 04/03/19 20:23 Baso % (Auto) 0.7 % (0.2-1.0) 04/03/19 20:23 Neut # (Auto) 6.3 x10^3/uL (2.2-4.8) H 04/03/19 20:23 Lymph # (Auto) 1.2 X10^3/uL (1.3-2.9) L 04/03/19 20:23 [place] # (Auto) 0.6 x10^3/uL (0.3-0.8) 04/03/19 20:23 Eos # (Auto) 0.1 x10^3/uL (0.0-0.2) 04/03/19 20:23 Baso # (Auto) 0.1 X10^3/uL (0.0-0.1) 04/03/19 20:23 Absolute Nucleated RBC 0.0 /100WBC 04/03/19 20:23 Sodium 137 mmol/L (136-145) 04/03/19 20:28 Corrected Sodium 140 mmol/L (136-145) 04/03/19 20:28 Potassium 4.5 mmol/L (3.5-5.1) 04/03/19 20:28 Chloride 100 mmol/L (98-107) 04/03/19 20:28 Carbon Dioxide 30.5 mmol/L (21-32) 04/03/19 20:28 BUN 10 mg/dL (7-18) 04/03/19 20:28 Creatinine 1.02 mg/dL (0.55-1.02) 04/03/19 20:28 Est GFR (MDRD) Af Amer > 60 (>60) 04/03/19 20:28 Est GFR (MDRD) Non-Af 55 (>60) L 04/03/19 20:28 Glucose 245 mg/dL (65-99) H 04/03/19 20:28 Lactic Acid 1.4 mmol/L (0.4-2.0) 04/03/19 20:28 Calcium 9.6 mg/dL (8.5-10.1) 04/03/19 20:28 Corrected Calcium 10.6 mg/dL (8.5-10.1) H 04/03/19 20:28 Total Bilirubin 0.90 mg/dL (0.2-1.0) 04/03/19 20:28 AST 15 Units/L (15-37) 04/03/19 20:28 ALT 11 Units/L (12-78) L 04/03/19 20:28 Alkaline Phosphatase 76 Units/L (46-116) 04/03/19 20:28 Creatine Kinase 76 Units/L (26-192) 04/03/19 20:28 CK-MB (CK-2) 1.7 ng/mL (0-4.0) 04/03/19 20:28 CK/CKMB % Calc 2.2 % (<4) 04/03/19 20:28 Troponin I < 0.02 ng/mL (0-1.5) 04/03/19 20:28 Total Protein 6.8 g/dL (6.4-8.2) 04/03/19 20:28 Albumin 2.8 g/dL (3.4-5.0) L 04/03/19 20:28 Globulin 4.0 g/dL (2.5-4.5) 04/03/19 20:28 Albumin/Globulin Ratio 0.7 Ratio (1.1-2.1) L 04/03/19 20:28 Specimen Type Catherized urine 04/03/19 20:54 Urine Color Yellow (YELLOW) 04/03/19 20:54 Urine Appearance Slightly hazy (CLEAR) 04/03/19 20:54 Urine pH 5.0 (5.0 - 8.0) 04/03/19 20:54 Ur Specific [place] 1.020 (1.000-1.030) 04/03/19 20:54 Urine Protein 1+ (NEGATIVE) 04/03/19 20:54 Urine Glucose (UA) Negative (NEGATIVE) 04/03/19 20:54 Urine Ketones Negative (NEGATIVE) 04/03/19 20:54 Urine Occult Blood Negative (NEGATIVE) 04/03/19 20:54 Urine Nitrite Positive (NEGATIVE) 04/03/19 20:54 Urine Bilirubin Negative (NEGATIVE) 04/03/19 20:54 Urine Urobilinogen 1+ (NORMAL) 04/03/19 20:54 Ur Leukocyte Esterase 1+ (NEGATIVE) 04/03/19 20:54 Urine RBC None seen /HPF (NONE SEEN) 04/03/19 20:54 Urine WBC 0-2 /HPF (NONE SEEN) 04/03/19 20:54 Ur Squamous Epith Cells Few /HPF (NEGATIVE) 04/03/19 20:54 Amorphous Sediment 1+ /HPF (NEGATIVE) 04/03/19 20:54 Urine Bacteria 3+ /HPF (NEGATIVE) 04/03/19 20:54 Ur Culture Indicated? Yes/culture set up 04/03/19 20:54 XRAY XRAY Interpreted by: Radiologist XRAY Findings: REPORT ON RECORD NOTED AND DISCUSS WITH PATIENT. EKG Rate: 65 [place]: Normal Rhythm: NSR Block: RBBB Hypertrophy: None ST: Nonsp Opioid Opioid Risk Tool Age (Andrea box if 16-45): No Total: 0 Total Score Risk Category: Low Risk Copyright: [facility] predicting aberrant behaviors Diagnosis Discharge Problem: Generalized weakness UTI (urinary tract infection) Qualifiers: Urinary tract infection type: site unspecified Hematuria presence: with hematuria Qualified Code(s): N39.0 - Urinary tract infection, site not specified Altered mental state Qualifiers: Altered mental status type: transient alteration of awareness Qualified Code(s): R40.4 - Transient alteration of awareness
[2019-04-03 20:38] LABS: BASOPHILS # (AUTO) 0.1 X10^3/uL (0.0-0.1); BASOPHILS % (AUTO) 0.7 % (0.2-1.0); EOSINOPHILS # (AUTO) 0.1 x10^3/uL (0.0-0.2); EOSINOPHILS % (AUTO) 1.8 % (0.9-2.9); HEMATOCRIT 41.3 % (36.0-47.0); HEMOGLOBIN 13.7 g/dL (12.0-16.0); LYMPHOCYTES # (AUTO) 1.2 X10^3/uL (1.3-2.9); LYMPHOCYTES % (AUTO) 14.5 % (21.0-51.0); MEAN CORPUSCULAR HEMOGLOBIN 30.2 pg (27.0-34.0); MEAN CORPUSCULAR HGB CONC 33.1 g/dL (33.0-35.0); MEAN PLATELET VOLUME 9.1 fL (7.4-11.0); MONOCYTES # (AUTO) 0.6 x10^3/uL (0.3-0.8); MONOCYTES % (AUTO) 6.7 % (0.0-13.0); NEUTROPHILS # (AUTO) 6.3 x10^3/uL (2.2-4.8); NEUTROPHILS % (AUTO) 76.3 % (42.0-75.0); PLATELET COUNT 287 X10^3/uL (150.0-450.0); RED BLOOD COUNT 4.54 X10^6/uL (3.5-5.4); RED CELL DISTRIBUTION WIDTH 14.6 % (11.6-16.5); WHITE BLOOD COUNT 8.3 X10^3/uL (3.6-10.0)
--- NOTE | 2019-04-03 20:51 | RAD ---
Chest, one view Indication: Weakness Comparison: 08/08/2018 Findings: Cardiac silhouette is enlarged without congestive failure. Prior CABG noted. No focal infiltrate or significant effusion is identified. No pneumothorax. Impression: No acute cardiopulmonary abnormality or significant interval change. Reported By:
[2019-04-03 20:54] LABS: BLOOD UREA NITROGEN 10 mg/dL (7-18); CALCIUM 9.6 mg/dL (8.5-10.1); CARBON DIOXIDE 30.5 mmol/L (21-32); CHLORIDE 100 mmol/L (98-107); COR NA(FOR HYPERGLY) 140 mmol/L (136-145); CREATININE 1.02 mg/dL (0.55-1.02); SODIUM 137 mmol/L (136-145); TROPONIN I < 0.02 ng/mL (0-1.5); eGFR NON BLACK RACES 55 (>60)
--- NOTE | 2019-04-03 20:54 | CT ---
History: Weakness, some acute mental status change. Comparison: None. Procedure: A noncontrast multidetector CT was performed from the vertex to the foramen magnum. Source and multiplanar reformatted images reviewed. Findings: There is moderately severe patchy, confluent low density throughout the deep subcortical and periventricular white bilaterally. Physiologic basal ganglia calcifications are present, right greater than left. There is diffuse intracranial atherosclerosis. There is no acute intracranial infarct, hemorrhage, mass or edema. There is no extra-axial fluid, hemorrhage, or mass. Ventricles and cisterns are normal in size shape position for age. Skull base and calvarium are normally intact. Partially visible at Javier axial articulation degeneration. Impression: 1. Moderately severe, diffuse, chronic white matter disease. No acute intracranial abnormality. Physiologic basal ganglia calcifications. Diffuse, severe intracranial atherosclerosis. Reported By:
[2019-04-03 20:58] LABS: ALANINE AMINOTRANSFERASE 11 Units/L (12-78); ALBUMIN 2.8 g/dL (3.4-5.0); ALKALINE PHOSPHATASE 76 Units/L (46-116); ASPARTATE AMINO TRANSFERASE 15 Units/L (15-37); CKMB % 2.2 % (<4); COR CA(FOR HYPOALB) 10.6 mg/dL (8.5-10.1); CREATINE KINASE 76 Units/L (26-192); CREATINE KINASE MB 1.7 ng/mL (0-4.0); LACTIC ACID 1.4 mmol/L (0.4-2.0); TOTAL PROTEIN 6.8 g/dL (6.4-8.2)
[2019-04-03 21:03] LABS: BILIRUBIN,URINE NEGATIVE (NEGATIVE); BLOOD/HEMOGLOBIN,URINE NEGATIVE (NEGATIVE); GLUCOSE, URINE NEGATIVE (NEGATIVE); KETONES,URINE NEGATIVE (NEGATIVE); LEUKOCYTE ESTERASE ,URINE 1+ (NEGATIVE); NITRITES,URINE POSITIVE (NEGATIVE); PROTEIN,URINE 1+ (NEGATIVE); UROBILINOGEN,URINE 1+ (NORMAL)
[2019-04-03 21:27] LABS: AMORPHOUS SEDIMENT,UR 1+ /HPF (NEGATIVE); APPEARANCE,URINE SLIGHTLY HAZY (CLEAR); BACTERIA,URINE 3+ /HPF (NEGATIVE); COLOR,URINE YELLOW (YELLOW); RBC,URINE NONE SEEN /HPF (NONE SEEN); SQUAMOUS EPITHELIAL CELL,UR FEW /HPF (NEGATIVE)
[2019-04-03] MEDS ORDERED: ROCEPHIN VIAL 1 GRAM IVP ONE (22:00)
[2019-04-03] MEDS ORDERED: ROCEPHIN VIAL 1 GRAM ONE (22:09)
[2019-04-03] MEDS: NS 1000 ML 1,000 ML IV SCH (22:17)
[2019-04-03 23:34] VITALS: BMI 31.6
[2019-04-04 06:05] LABS: BASOPHILS # (AUTO) 0.1 X10^3/uL (0.0-0.1); BASOPHILS % (AUTO) 1.7 % (0.2-1.0); EOSINOPHILS # (AUTO) 0.2 x10^3/uL (0.0-0.2); EOSINOPHILS % (AUTO) 2.4 % (0.9-2.9); HEMATOCRIT 37.2 % (36.0-47.0); HEMOGLOBIN 12.3 g/dL (12.0-16.0); LYMPHOCYTES # (AUTO) 1.5 X10^3/uL (1.3-2.9); LYMPHOCYTES % (AUTO) 20.4 % (21.0-51.0); MEAN CORPUSCULAR HEMOGLOBIN 29.7 pg (27.0-34.0); MEAN PLATELET VOLUME 9.3 fL (7.4-11.0); MONOCYTES # (AUTO) 0.5 x10^3/uL (0.3-0.8); NEUTROPHILS # (AUTO) 5.1 x10^3/uL (2.2-4.8); NEUTROPHILS % (AUTO) 68.5 % (42.0-75.0); PLATELET COUNT 253 X10^3/uL (150.0-450.0); RED BLOOD COUNT 4.13 X10^6/uL (3.5-5.4); RED CELL DISTRIBUTION WIDTH 14.4 % (11.6-16.5); WHITE BLOOD COUNT 7.4 X10^3/uL (3.6-10.0)
[2019-04-04 06:22] LABS: CKMB % 1.8 % (<4); CREATINE KINASE 79 Units/L (26-192); CREATINE KINASE MB 1.4 ng/mL (0-4.0); TROPONIN I < 0.02 ng/mL (0-1.5)
[2019-04-04 06:28] LABS: ALANINE AMINOTRANSFERASE 9 Units/L (12-78); ALBUMIN 2.4 g/dL (3.4-5.0); ALKALINE PHOSPHATASE 64 Units/L (46-116); ASPARTATE AMINO TRANSFERASE 14 Units/L (15-37); BLOOD UREA NITROGEN 9 mg/dL (7-18); CALCIUM 8.8 mg/dL (8.5-10.1); CARBON DIOXIDE 30.7 mmol/L (21-32); CHLORIDE 103 mmol/L (98-107); CHOL/HDL RATIO 6.1 (0.0-5.0); CHOLESTEROL 152 mg/dL (0-200); COR CA(FOR HYPOALB) 10.1 mg/dL (8.5-10.1); COR NA(FOR HYPERGLY) 142 mmol/L (136-145); CREATININE 0.83 mg/dL (0.55-1.02); HDL CHOLESTEROL 25 mg/dL (40-60); MAGNESIUM 1.8 mg/dL (1.7-2.9); SODIUM 140 mmol/L (136-145); TOTAL PROTEIN 5.9 g/dL (6.4-8.2); TRIGLYCERIDES 201 mg/dL (0-150); eGFR NON BLACK RACES > 60 (>60)
[2019-04-04] MEDS: LIPITOR TAB 40 MG PO SCH (08:46)
[2019-04-04] MEDS: PROTONIX TAB 40 MG PO SCH ×2 (08:46→20:40)
[2019-04-04] MEDS: XARELTO PO SCH (08:47)
[2019-04-04] MEDS: SYNTHROID 175 mcg TAB PO SCH (08:47)
[2019-04-04] MEDS: COREG TAB 6.25 MG PO SCH ×2 (08:47→20:40)
[2019-04-04] MEDS: MICRO K EXTEN CAP 10 MEQ PO SCH (08:47)
[2019-04-04] MEDS: LANOXIN PO SCH (09:15)
[2019-04-04] MEDS: PATIENT'S HOME MEDICATION (Mirabegron [Myrbetriq] 50 MG) PO SCH ×2 (09:15→11:30)
[2019-04-04] MEDS: FORTAZ or TAZICEF VIAL INJ IVP SCH ×3 (11:53→20:40)
[2019-04-04] MEDS: LEVAQUIN PREMIX IV 500 MG 500 MG/100 ML BAG IV SCH (11:53)
[2019-04-04 12:02] LABS: CKMB % 2.3 % (<4); CREATINE KINASE 61 Units/L (26-192); CREATINE KINASE MB 1.4 ng/mL (0-4.0); TROPONIN I < 0.02 ng/mL (0-1.5)
[2019-04-04] MEDS: NS 1000 ML 1,000 ML IV SCH (17:42)
[2019-04-04] MEDS: HumuLIN R SUBCUT PRN (17:42)
--- NOTE | 2019-04-04 19:34 | DR.H&P ---
H&P - History & Physical for Day of: H&P Date: 04/03/19 - Chief Complaint Chief Complaint: WEAKNESS, FALLS, ALTERED MENTAL STATUS - History of Present Illness History of Present Illness: IS A 83 YEAR OLD PATIENT OF OURS WHO PRESENTED TO THE ER VIA EMS WITH COMPLAINTS OF GENERALIZED WEAKNESS, FREQUENT FALLS, AND ALTERED MENTAL STATUS. FAMILY REPORTS THAT PATIENT IS DEVELOPING A DECUBITUS ULCER IN THE SACRAL AREA. PATIENT REPORTS PAIN TO THE AREA. ON EXAMINATION, THERE IS A STAGE 2 WOUND TO THE SACRUM. ON ARRIVAL TO THE ER, PATIENTS SPEECH WAS SLURRED. HER VITALS ON ARRIVAL WERE: 97.9-71-16-96%-141/60. LABS WERE OBTAINED. ABNORMAL LAB VALUES INCLUDE THE FOLLOWING: GLUCOSE 245, ALT 11, ALBUMIN 2.8, DIGOXIN 0.52. CARDIAC ENZYMES WITHIN NORMAL LIMITS. A URINALYSIS WAS OBTAINED AND REVEALED: WBC 0-2, RBC NONE SEEN, BACTERIA 3+, LEUKOCYTES 1+. BLOOD AND URINE CULTURES PENDING. AN EKG WAS OBTAINED AND REVEALED: SINUS RHYTHM WITH HR 65. A BRAIN CT WAS OBTAINED AND REVEALED: Moderately severe, diffuse, chronic white matter disease. No acute intracranial abnormality. Physiologic basal ganglia calcifications. Diffuse, severe intracranial atherosclerosis. A CHEST XRAY WAS OBTAINED AND REVEALED: No acute cardiopulmonary abnormality or significant interval change. SHE WAS GIVEN ROCEPHIN 1G IV IN THE ER. WE ADMITTED PATIENT FOR FURTHER EVALUATION AND TREATMENT OF URINARY TRACT INFECTION, ALTERED MENTAL STATUS, AND GENERALIZED WEAKNESS. WE PLAN TO FOLLOW UP WITH AM LABS AND CONTINUE TO MONITOR. - Past Medical History Past Medical History: Angina, [place], Coronary Artery Disease, Hypertension, Dyslipidemia, Diabetes, Depression, Anxiety, Hypothyroidism, Anemia, CVA, COPD, GERD, Arthritis Additional Medical History: Freq UTI's, PVD - Past Surgical History Surgical History: Cholecystectomy, Other - Family History Family Medical History: Diabetes Mellitus, Cancer - Social History Does patient currently use any type of tobacco product: No Have you used tobacco products in the last 12 months: No Type of Tobacco Use: None Does any household member use tobacco: No Alcohol Use: None Drug Use: None Prescription drug monitoring program results: PDMP reviewed and no concerns identified - Medications Home Medications: No Known Drug Allergies Allergy (Verified 05/15/18 14:40) CONTINUE taking the following medications carvedilol 6.25 mg PO BID 07/08/19 [History] digoxin [Lanoxin] 0.125 mg PO DAILY 04/03/19 [History] insulin glargine [Lantus U-100 Insulin] 15 unit SUBCUT BID 04/03/19 [History] - Review of Systems Constitutional: See HPI, Weakness, Malaise Eyes: No Symptoms Reported ENT: No Symptoms Reported Respiratory: No Symptoms Reported Cardiovascular: No Symptoms Reported Gastrointestinal: No Symptoms Reported Genitourinary: No Symptoms Reported Musculoskeletal: No Symptoms Reported Skin: See HPI, Wound (SACRAL WOUND ) Neurological: See HPI, Weakness, Other (FREQUENT FALLS ) - Physical Exam Vital Signs: Temperature 98.3 F Pulse Rate [Left Brachial] 56 Pulse Rate [Apical] 69 Pulse Rate 64 Respiratory Rate 20 Blood Pressure [Left Arm] 173/74 Blood Pressure [Right Arm] 140/63 Blood Pressure 141/60 O2 Sat by Pulse Oximetry 97 Oriented: Person Eyes: Normal Ear: Normal Nose: Normal Throat: Normal Respiratory: Diminished Throughout Cardiovascular: Normal. negative: S3, S4, Murmur : Normal Auscultation: Bowel Sounds: Normal Palpation: Normal Tenderness: Normal Skin: Wound (STAGE 2 DECUBITUS ULCER TO SACRUM ) Musculoskeletal: Normal Psychiatric: Normal Mood Description: Calm Affect: Normal Speech Pattern: Inappropriate - Assessment/Plan (1) UTI (urinary tract infection) Qualifiers: Urinary tract infection type: site unspecified Hematuria presence: with hematuria Qualified Code(s): N39.0 - Urinary tract infection, site not specified; R31.9 - Hematuria, unspecified Status: Acute Plan: NORMAL SALINE, ROCEPHIN 1G IV DAILY, CONTINUE TO MONITOR (2) Altered mental state Qualifiers: Altered mental status type: transient alteration of awareness Qualified Code(s): R40.4 - Transient alteration of awareness Status: Acute (3) Generalized weakness Status: Acute Plan: PT/OT, CONTINUE TO MONITOR - Allergies Allergies/Adverse Reactions: Allergies Allergy/AdvReac Type Severity Reaction Status Date / Time No Known Drug Allergies Allergy Verified 05/15/18 14:40
[2019-04-04] MEDS ORDERED: ROCEPHIN VIAL 1 GRAM IVP SCH (21:00)
[2019-04-04] MEDS: SNACK - Diabetic Appropriate PO SCH (21:00)
[2019-04-05] MEDS: HumuLIN R SUBCUT PRN ×5 (00:55→21:37)
[2019-04-05] MEDS: ULTRAM PO PRN ×2 (02:11→21:06)
[2019-04-05] MEDS: NS 1000 ML 1,000 ML IV SCH ×2 (03:48→12:55)
[2019-04-05 05:24] LABS: BASOPHILS % (AUTO) 0.5 % (0.2-1.0); EOSINOPHILS # (AUTO) 0.2 x10^3/uL (0.0-0.2); EOSINOPHILS % (AUTO) 3.6 % (0.9-2.9); HEMATOCRIT 36.2 % (36.0-47.0); LYMPHOCYTES # (AUTO) 1.3 X10^3/uL (1.3-2.9); LYMPHOCYTES % (AUTO) 19.3 % (21.0-51.0); MEAN CORPUSCULAR HEMOGLOBIN 30.2 pg (27.0-34.0); MEAN CORPUSCULAR HGB CONC 33.1 g/dL (33.0-35.0); MEAN CORPUSCULAR VOLUME 91.2 fL (80.0-100.0); MEAN PLATELET VOLUME 9.9 fL (7.4-11.0); MONOCYTES # (AUTO) 0.5 x10^3/uL (0.3-0.8); MONOCYTES % (AUTO) 7.9 % (0.0-13.0); NEUTROPHILS # (AUTO) 4.7 x10^3/uL (2.2-4.8); NEUTROPHILS % (AUTO) 68.7 % (42.0-75.0); PLATELET COUNT 226 X10^3/uL (150.0-450.0); RED BLOOD COUNT 3.97 X10^6/uL (3.5-5.4); RED CELL DISTRIBUTION WIDTH 14.5 % (11.6-16.5); WHITE BLOOD COUNT 6.9 X10^3/uL (3.6-10.0)
[2019-04-05 05:31] LABS: ALANINE AMINOTRANSFERASE 9 Units/L (12-78); ALBUMIN 2.2 g/dL (3.4-5.0); ALKALINE PHOSPHATASE 75 Units/L (46-116); ASPARTATE AMINO TRANSFERASE 10 Units/L (15-37); BLOOD UREA NITROGEN 7 mg/dL (7-18); CALCIUM 8.7 mg/dL (8.5-10.1); CARBON DIOXIDE 28.8 mmol/L (21-32); CHLORIDE 104 mmol/L (98-107); COR CA(FOR HYPOALB) 10.1 mg/dL (8.5-10.1); COR NA(FOR HYPERGLY) 143 mmol/L (136-145); CREATININE 0.81 mg/dL (0.55-1.02); SODIUM 139 mmol/L (136-145); TOTAL PROTEIN 5.7 g/dL (6.4-8.2); eGFR NON BLACK RACES > 60 (>60)
[2019-04-05] MEDS: FORTAZ or TAZICEF VIAL INJ IVP SCH ×3 (05:48→21:05)
[2019-04-05] MEDS: COREG TAB 6.25 MG PO SCH ×2 (09:03→21:07)
[2019-04-05] MEDS: SYNTHROID 175 mcg TAB PO SCH (09:03)
[2019-04-05] MEDS: PROTONIX TAB 40 MG PO SCH ×2 (09:03→21:06)
[2019-04-05] MEDS: PATIENT'S HOME MEDICATION (Mirabegron [Myrbetriq] 50 MG) PO SCH (09:03)
[2019-04-05] MEDS: LIPITOR TAB 40 MG PO SCH (09:03)
[2019-04-05] MEDS: MICRO K EXTEN CAP 10 MEQ PO SCH (09:03)
[2019-04-05] MEDS: XARELTO PO SCH (09:03)
[2019-04-05] MEDS: LANOXIN PO SCH (09:04)
[2019-04-05] MEDS: LEVAQUIN PREMIX IV 500 MG 500 MG/100 ML BAG IV SCH (09:04)
[2019-04-05] MEDS: COZAAR PO SCH (12:53)
[2019-04-05] MEDS: SNACK - Diabetic Appropriate PO SCH (21:00)
[2019-04-06 04:01] VITALS: BP 139/68
[2019-04-06 05:14] LABS: BASOPHILS % (AUTO) 0.6 % (0.2-1.0); EOSINOPHILS # (AUTO) 0.3 x10^3/uL (0.0-0.2); EOSINOPHILS % (AUTO) 4.1 % (0.9-2.9); HEMATOCRIT 35.4 % (36.0-47.0); HEMOGLOBIN 11.9 g/dL (12.0-16.0); LYMPHOCYTES # (AUTO) 1.6 X10^3/uL (1.3-2.9); LYMPHOCYTES % (AUTO) 24.3 % (21.0-51.0); MEAN CORPUSCULAR HGB CONC 33.5 g/dL (33.0-35.0); MEAN CORPUSCULAR VOLUME 89.5 fL (80.0-100.0); MEAN PLATELET VOLUME 9.3 fL (7.4-11.0); MONOCYTES # (AUTO) 0.5 x10^3/uL (0.3-0.8); MONOCYTES % (AUTO) 7.8 % (0.0-13.0); NEUTROPHILS # (AUTO) 4.3 x10^3/uL (2.2-4.8); NEUTROPHILS % (AUTO) 63.2 % (42.0-75.0); PLATELET COUNT 223 X10^3/uL (150.0-450.0); RED BLOOD COUNT 3.95 X10^6/uL (3.5-5.4); RED CELL DISTRIBUTION WIDTH 14.7 % (11.6-16.5); WHITE BLOOD COUNT 6.8 X10^3/uL (3.6-10.0)
[2019-04-06 05:21] LABS: ALANINE AMINOTRANSFERASE 8 Units/L (12-78); ALBUMIN 2.2 g/dL (3.4-5.0); ALKALINE PHOSPHATASE 63 Units/L (46-116); ASPARTATE AMINO TRANSFERASE 10 Units/L (15-37); BLOOD UREA NITROGEN 5 mg/dL (7-18); CALCIUM 8.5 mg/dL (8.5-10.1); CARBON DIOXIDE 28.1 mmol/L (21-32); CHLORIDE 105 mmol/L (98-107); COR CA(FOR HYPOALB) 9.9 mg/dL (8.5-10.1); COR NA(FOR HYPERGLY) 143 mmol/L (136-145); CREATININE 0.66 mg/dL (0.55-1.02); SODIUM 140 mmol/L (136-145); TOTAL PROTEIN 5.5 g/dL (6.4-8.2); eGFR NON BLACK RACES > 60 (>60)
[2019-04-06] MEDS: NS 1000 ML 1,000 ML IV SCH (06:20)
[2019-04-06] MEDS: FORTAZ or TAZICEF VIAL INJ IVP SCH (06:20)
[2019-04-06] MEDS: HumuLIN R SUBCUT PRN ×2 (06:23→10:59)
[2019-04-06] MEDS: PATIENT'S HOME MEDICATION (Mirabegron [Myrbetriq] 50 MG) PO SCH (08:25)
[2019-04-06] MEDS: SYNTHROID 175 mcg TAB PO SCH (08:25)
[2019-04-06] MEDS: MICRO K EXTEN CAP 10 MEQ PO SCH (08:25)
[2019-04-06] MEDS: LEVAQUIN PREMIX IV 500 MG 500 MG/100 ML BAG IV SCH (08:25)
[2019-04-06] MEDS: XARELTO PO SCH (08:26)
[2019-04-06] MEDS: LIPITOR TAB 40 MG PO SCH (08:26)
[2019-04-06] MEDS: PROTONIX TAB 40 MG PO SCH (08:26)
[2019-04-06] MEDS: COZAAR PO SCH (08:26)
[2019-04-06] MEDS: LANOXIN PO SCH (08:31)
--- NOTE | 2019-04-06 10:08 | PCM.PROG ---
Progress Note - Progress Note for Day of Date of Exam: 04/04/19 - Subjective Subjective: WAS ADMITTED FOR A URINARY TRACT INFECTION, AMS, AND GENERALIZED WEAKNESS. SHE ALSO HAS A STAGE 2 DECUBITUS ULCER TO THE SACRUM. SHE CONTINUES WITH COMPLAINTS OF WEAKNESS TODAY. ON EXAMINATION, HEART IS REGULAR IN RATE AND RHYTHM. BILATERAL LUNGS ARE NOTED WITH DIMINISHED LUNG SOUNDS THROUGHOUT. ABDOMEN IS ROUND, SOFT, AND NON-TENDER WITH NORMAL BOWEL SOUNDS NOTED IN ALL QUADRANTS. HER VITALS THIS MORNING ARE: 97.6-60-20-96%-168/57. LABS WERE OBTAINED. ABNORMAL LAB VALUES INCLUDE THE FOLLOWING: GLUCOSE 263, AST 10, ALT 9, TOTAL PROTEIN 5.7, ALBUMIN 2.2. BLOOD CULTURES ARE PENDING. URINE CULTURE IS ALSO PENDING. TODAY, WE WILL DISCONTINUE THE ROCEPHIN AND START IV FORTAZ AND IV LEVAQUIN. WE WILL HAVE PHYSICAL THERAPY EVALUATE PATIENT. OTHERWISE, WE PLAN TO FOLLOW UP WITH AM LABS AND CONTINUE TO MONITOR. - Past Medical Family Social History Past Med/Fam/Surg Hx: No changes since H&P Allergies: Allergies No Known Drug Allergies Allergy (Verified 05/15/18 14:40) - Review of Systems ROS: No change since H&P - Vital Signs and I&O's Vital Signs: Temperature 98.1 F Pulse Rate [Left Brachial] 54 Pulse Rate [Apical] 69 Pulse Rate 54 Respiratory Rate 18 Blood Pressure [Left Arm] 139/68 Blood Pressure [Right Arm] 140/63 Blood Pressure 141/60 O2 Sat by Pulse Oximetry 97 Intake and Output: Intake & Output 04/03/19 04/04/19 04/05/19 04/06/19 11:59 11:59 11:59 11:59 Intake Total 550 / 550 2009 1540 / 1540 Output Total 0 / 0 Balance 550 / 550 2009 1540 / 1540 - Physical Exam Oriented: Normal Eyes: Normal Ear: Normal Nose: Normal Throat: Normal Cardiovascular: Normal. negative: S3, S4, Murmur : Normal Auscultation: Bowel Sounds: Normal Palpation: Normal Tenderness: Normal Skin: Wound (STAGE 2 DECUBITUS ULCER TO SACRUM ) Musculoskeletal: Normal Psychiatric: Normal Mood Description: Calm Affect: Normal Speech Pattern: Clear, Appropriate - Laboratory and Diagnostics Result Diagrams: 04/06/19 04:08 04/06/19 04:08 Labs: 04/03/19 20:23 Blood Blood Culture - Preliminary 04/03/19 20:28 Blood Blood Culture - Preliminary 04/03/19 20:54 Urine,Catheterized Urine Culture - Final Escherichia Coli Laboratory WBC 6.8 X10^3/uL (3.6-10.0) 04/06/19 04:08 RBC 3.95 X10^6/uL (3.5-5.4) 04/06/19 04:08 Hgb 11.9 g/dL (12.0-16.0) L 04/06/19 04:08 Hct 35.4 % (36.0-47.0) L 04/06/19 04:08 MCV 89.5 fL (80.0-100.0) 04/06/19 04:08 MCH 30.0 pg (27.0-34.0) 04/06/19 04:08 MCHC 33.5 g/dL (33.0-35.0) 04/06/19 04:08 RDW 14.7 % (11.6-16.5) 04/06/19 04:08 Plt Count 223 X10^3/uL (150.0-450.0) 04/06/19 04:08 MPV 9.3 fL (7.4-11.0) 04/06/19 04:08 Neut % (Auto) 63.2 % (42.0-75.0) 04/06/19 04:08 Lymph % (Auto) 24.3 % (21.0-51.0) 04/06/19 04:08 [place] % (Auto) 7.8 % (0.0-13.0) 04/06/19 04:08 Eos % (Auto) 4.1 % (0.9-2.9) H 04/06/19 04:08 Baso % (Auto) 0.6 % (0.2-1.0) 04/06/19 04:08 Neut # (Auto) 4.3 x10^3/uL (2.2-4.8) 04/06/19 04:08 Lymph # (Auto) 1.6 X10^3/uL (1.3-2.9) 04/06/19 04:08 [place] # (Auto) 0.5 x10^3/uL (0.3-0.8) 04/06/19 04:08 Eos # (Auto) 0.3 x10^3/uL (0.0-0.2) H 04/06/19 04:08 Baso # (Auto) 0.0 X10^3/uL (0.0-0.1) 04/06/19 04:08 Absolute Nucleated RBC 0.1 /100WBC 04/06/19 04:08 Sodium 140 mmol/L (136-145) 04/06/19 04:08 Corrected Sodium 143 mmol/L (136-145) 04/06/19 04:08 Potassium 3.5 mmol/L (3.5-5.1) 04/06/19 04:08 Chloride 105 mmol/L (98-107) 04/06/19 04:08 Carbon Dioxide 28.1 mmol/L (21-32) 04/06/19 04:08 BUN 5 mg/dL (7-18) L 04/06/19 04:08 Creatinine 0.66 mg/dL (0.55-1.02) 04/06/19 04:08 Est GFR (MDRD) Af Amer > 60 (>60) 04/06/19 04:08 Est GFR (MDRD) Non-Af > 60 (>60) 04/06/19 04:08 Glucose 216 mg/dL (65-99) H 04/06/19 04:08 POC Glucose (mg/dL) 186 mg/dL (65-99) H 04/06/19 06:16 Lactic Acid 1.4 mmol/L (0.4-2.0) 04/03/19 20:28 Calcium 8.5 mg/dL (8.5-10.1) 04/06/19 04:08 Corrected Calcium 9.9 mg/dL (8.5-10.1) 04/06/19 04:08 Magnesium 1.8 mg/dL (1.7-2.9) 04/04/19 05:14 Total Bilirubin 0.40 mg/dL (0.2-1.0) 04/06/19 04:08 AST 10 Units/L (15-37) L 04/06/19 04:08 ALT 8 Units/L (12-78) L 04/06/19 04:08 Alkaline Phosphatase 63 Units/L (46-116) 04/06/19 04:08 Creatine Kinase 61 Units/L (26-192) 04/04/19 11:00 CK-MB (CK-2) 1.4 ng/mL (0-4.0) 04/04/19 11:00 CK/CKMB % Calc 2.3 % (<4) 04/04/19 11:00 Troponin I < 0.02 ng/mL (0-1.5) 04/04/19 11:00 Total Protein 5.5 g/dL (6.4-8.2) L 04/06/19 04:08 Albumin 2.2 g/dL (3.4-5.0) L 04/06/19 04:08 Globulin 3.3 g/dL (2.5-4.5) 04/06/19 04:08 Albumin/Globulin Ratio 0.7 Ratio (1.1-2.1) L 04/06/19 04:08 Triglycerides 201 mg/dL (0-150) H 04/04/19 05:14 Cholesterol 152 mg/dL (0-200) 04/04/19 05:14 LDL Cholesterol, Calc 87 mg/dL (0-100) 04/04/19 05:14 HDL Cholesterol 25 mg/dL (40-60) L 04/04/19 05:14 Cholesterol/HDL Ratio 6.1 (0.0-5.0) H 04/04/19 05:14 Specimen Type Catherized urine 04/03/19 20:54 Urine Color Yellow (YELLOW) 04/03/19 20:54 Urine Appearance Slightly hazy (CLEAR) 04/03/19 20:54 Urine pH 5.0 (5.0 - 8.0) 04/03/19 20:54 Ur Specific [place] 1.020 (1.000-1.030) 04/03/19 20:54 Urine Protein 1+ (NEGATIVE) 04/03/19 20:54 Urine Glucose (UA) Negative (NEGATIVE) 04/03/19 20:54 Urine Ketones Negative (NEGATIVE) 04/03/19 20:54 Urine Occult Blood Negative (NEGATIVE) 04/03/19 20:54 Urine Nitrite Positive (NEGATIVE) 04/03/19 20:54 Urine Bilirubin Negative (NEGATIVE) 04/03/19 20:54 Urine Urobilinogen 1+ (NORMAL) 04/03/19 20:54 Ur Leukocyte Esterase 1+ (NEGATIVE) 04/03/19 20:54 Urine RBC None seen /HPF (NONE SEEN) 04/03/19 20:54 Urine WBC 0-2 /HPF (NONE SEEN) 04/03/19 20:54 Ur Squamous Epith Cells Few /HPF (NEGATIVE) 04/03/19 20:54 Amorphous Sediment 1+ /HPF (NEGATIVE) 04/03/19 20:54 Urine Bacteria 3+ /HPF (NEGATIVE) 04/03/19 20:54 Ur Culture Indicated? Yes/culture set up 04/03/19 20:54 Digoxin 0.52 ng/mL (0.9-2) L 04/04/19 05:14 - Plan (1) UTI (urinary tract infection) Status: Acute Qualifiers: Urinary tract infection type: site unspecified Hematuria presence: with hematuria Qualified Code(s): N39.0 - Urinary tract infection, site not specified; R31.9 - Hematuria, unspecified Plan: NORMAL SALINE, IV FORTAZ, IV LEVAQUIN, CONTINUE TO MONITOR (2) Altered mental state Status: Acute Qualifiers: Altered mental status type: transient alteration of awareness Qualified Code(s): R40.4 - Transient alteration of awareness (3) Generalized weakness Status: Acute Plan: PT/OT, CONTINUE TO MONITOR
== END 2019-04-06 11:15 | disposition home health service (06) | DRG 690 ==
LOC: ER 19:21 → MED/SURG 22:15
PROVIDERS: ADMIT Internal Medicine; ATTEND Internal Medicine
DX: E11.65 Type 2 diabetes mellitus with hyperglycemia; L89.152 Pressure ulcer of sacral region, stage 2; R53.1 Weakness; R94.31 Abnormal electrocardiogram [ECG] [EKG]; I25.10 Atherosclerotic heart disease of native coronary artery without angina pectoris; I10 Essential (primary) hypertension; R40.4 Transient alteration of awareness; R26.89 Other abnormalities of gait and mobility; K21.9 Gastro-esophageal reflux disease without esophagitis; R29.6 Repeated falls; B96.29 Other Escherichia coli [E. coli] as the cause of diseases classified elsewhere; J44.9 Chronic obstructive pulmonary disease, unspecified; F41.8 Other specified anxiety disorders; E78.2 Mixed hyperlipidemia; N39.0 Urinary tract infection, site not specified; M13.89 Other specified arthritis, multiple sites; E03.8 Other specified hypothyroidism
CPT/HCPCS: 36415; 51702; 70450; 71010; 71045; 80053; 80061; 80162; 81001; 82550; 82553; 83605; 83735; 84484; 85025; 87040; 87086; 87088; 87186; 93005; 94760; 96365; 96374; 97110; 97116; 97163; 97166; 99284; A4222; J0696; J0713; J1815; J1956; J7030

== ENCOUNTER 2020-02-07 15:11 | Observation (INO) ==
[2020-02-07 15:48] VITALS: BMI 41.0
[2020-02-07] MEDS ORDERED: CARDIZEM INJ 50 MG VIAL IVP ONE (15:48)
[2020-02-07] MEDS ORDERED: CARDIZEM INJ 50 MG VIAL ONE (15:56)
--- NOTE | 2020-02-07 15:58 | DR.AMS ---
HPI Time Seen Time Seen by Provider: 02/07/20 15:26 Complaint Cheif Complaint Doctors Comments: An 84 y/o female who was noted by family with confusion. The family members called EMS and upon arrival the family states she was noted in a.fib. Normally, she gets confused whenever she has a UTI the fami ly member states. The patient is responding now, she states she doesn't feel good (but she can't tell me how). She denies hurting anywhere, she denies SOB or chest pain. A secondary complaint brought to my attention was of Rt. leg pain when she is moved. COVID-19 Coronavirus risk:travel/contact w/high risk person: No Has patient experienced Coronavirus symptoms: No Reviewed Nurses Notes Reviewed: Yes Source History Provided: Patient and Family Member Mode of Arrival Mode of Arrival: EMS Duration Duration: Unknown Quality Quality: Confusion Context Recent: None History Of: Diabetes Associated Signs and Symptoms Associated Signs and Symptoms: Confusion PMH PMH Past Medical History: Anemia, Angina, Anxiety, Arthritis, COPD, Coronary Artery Disease, CVA, Depression, Diabetes, Dyslipidemia, GERD, Hypertension, Hypothyroidism and ND Past Surgical History: Yes Surgical History: Cholecystectomy and Other Family History Family Medical History: Diabetes Mellitus and Cancer Social History Do you use any recreational Drugs:: No ROS Review of Systems Constitutional: No Symptoms Reported Eyes: No Symptoms Reported ENTM: No Symptoms Reported Respiratoy: No Symptoms Reported Cardiovascular: No Symptoms Reported Gastrointestinal/Abdominal: No Symptoms Reported Genitourinary: No Symptoms Reported Neurological: Other (Confused) Musculoskeletal: No Symptoms Reported Integumentary: No Symptoms Reported Hematologic/Lymphatic: No Symptoms Reported Psychiatric: No Symptoms Reported All Other Systems: Reviewed and Negative PE Vitals Vital Signs: Temp Pulse Resp BP BP Pulse Ox 02/07/20 18:16 117 H 25 H 210/88 02/07/20 18:15 120 H 26 H 02/07/20 18:00 111 H 24 02/07/20 17:46 105 H 25 H 237/105 02/07/20 17:45 110 H 26 H 02/07/20 17:30 91 H 25 H 83 L 02/07/20 17:16 97 H 25 H 203/85 85 L 02/07/20 17:15 95 H 25 H 86 L 02/07/20 17:00 94 H 28 H 93 L 02/07/20 16:46 85 25 H 220/93 02/07/20 16:45 88 26 H 02/07/20 16:31 84 26 H 191/86 02/07/20 16:30 84 27 H 02/07/20 16:15 105 H 26 H 228/89 93 L 02/07/20 16:13 102 H 26 H 207/86 94 L 02/07/20 16:01 147 H 32 H 197/105 95 02/07/20 16:00 146 H 31 H 95 02/07/20 15:49 144 H 24 97 02/07/20 15:13 98.7 F 128 H 22 225/100 97 01/17/20 21:35 127/63 General Limitations: No Limitations General Appearance: Alert Head Head Exam: Normal Inspection, Atraumatic and Normocephalic Eyes Eye exam: Normal Appearance and EOMI ENT ENT Exam: Normal Exam, Normal Oropharynx, Normal External Ear Exam and Mucous Membranes Moist Neck Neck Exam: Normal Inspection, Full ROM and Trachea Midline Chest Chest Inspection: Normal Inspection and Symmetric Chest Wall Rise Respiratory Respiratory Exam: Normal Lung Sounds Bilat Cardiovascular Cardiovascular Exam: Tachycardia, Irregular Rhythm, +S1 and +S2 Abdominal Exam Abdominal Exam: Normal Inspection, Normal Bowel Sounds and Soft Extremities Extremities Exam: Normal Inspection and Tenderness (medial/distal Rt. leg. ) Back Back Exam: Normal Inspection Neurological Neurological Exam: Alert Patient Oriented To: Person Speech: Fluid Speech Psychological Psychiatric Exam: Normal Affect and Normal Mood Skin Skin Exam: Dry and Normal Color MDM Differential Diagnosis Metabolic: Dehydration Infectious: UTI COURSE Reevaluation 1st: Improved Education/Counseling Education/Counseling: Patient, Family, Education and Counseling Educated On: Treatment, Diagnosis, Prognosis and Needs for Follow Up ROR Labs Reviewed Laboratory Results Reviewed?: Yes Result Diagrams: 02/07/20 16:26 02/07/20 16:26 Laboratory: WBC 12.0 X10^3/uL (3.6-10.0) H 02/07/20 16:26 RBC 4.69 X10^6/uL (3.5-5.4) 02/07/20 16:26 Hgb 13.3 g/dL (12.0-16.0) 02/07/20 16:26 Hct 41.5 % (36.0-47.0) 02/07/20 16:26 MCV 88.4 fL (80.0-100.0) 02/07/20 16: MCH 28.4 pg (27.0-34.0) 02/07/20 16: MCHC 32.1 g/dL (33.0-35.0) L 02/07/20 16: RDW 15.4 % (11.6-16.5) 02/07/20 16: Plt Count 220 X10^3/uL (150.0-450.0) 02/07/20 16: MPV 9.3 fL (7.4-11.0) 02/07/20 16: Neut % (Auto) 77.6 % (42.0-75.0) H 02/07/20 16: Lymph % (Auto) 10.8 % (21.0-51.0) L 02/07/20 16: [place] % (Auto) 11.0 % (0.0-13.0) 02/07/20 16: Eos % (Auto) 0.2 % (0.9-2.9) L 02/07/20 16: Baso % (Auto) 0.4 % (0.2-1.0) 02/07/20 16: Neut # (Auto) 9.3 x10^3/uL (2.2-4.8) H 02/07/20 16: Lymph # (Auto) 1.3 X10^3/uL (1.3-2.9) 02/07/20 16: [place] # (Auto) 1.3 x10^3/uL (0.3-0.8) H 02/07/20 16: Eos # (Auto) 0.0 x10^3/uL (0.0-0.2) 02/07/20 16: Baso # (Auto) 0.1 X10^3/uL (0.0-0.1) 02/07/20 16: Absolute Nucleated RBC 0.0 /100WBC 02/07/20 16:26 Sodium 143 mmol/L (136-145) 02/07/20 16: Corrected Sodium 148 mmol/L (136-145) H 02/07/20 16: Potassium 3.8 mmol/L (3.5-5.1) 02/07/20 16:26 Chloride 105 mmol/L (98-107) 02/07/20 16:26 Carbon Dioxide 30.5 mmol/L (21-32) 02/07/20 16:26 BUN 16 mg/dL (7-18) 02/07/20 16:26 Creatinine 1.02 mg/dL (0.55-1.02) 02/07/20 16:26 Est GFR (MDRD) Af Amer > 60 (>60) 02/07/20 16:26 Est GFR (MDRD) Non-Af 55 (>60) L 02/07/20 16:26 Glucose 296 mg/dL (65-99) H 02/07/20 16:26 Calcium 8.4 mg/dL (8.5-10.1) L 02/07/20 16:26 Corrected Calcium 9.4 mg/dL (8.5-10.1) 02/07/20 16:26 Total Bilirubin 1.60 mg/dL (0.2-1.0) H 02/07/20 16:26 AST 14 Units/L (15-37) L 02/07/20 16:26 ALT 9 Units/L (12-78) L 02/07/20 16:26 Alkaline Phosphatase 70 Units/L (46-116) 02/07/20 16:26 Creatine Kinase 312 Units/L (26-192) H 02/07/20 16:26 CK-MB (CK-2) 2.0 ng/mL (0-4.0) 02/07/20 16:26 CK/CKMB % Calc 0.6 % (<4) 02/07/20 16:26 Troponin I 0.03 ng/mL (0-1.5) 02/07/20 16:26 Total Protein 6.8 g/dL (6.4-8.2) 02/07/20 16:26 Albumin 2.7 g/dL (3.4-5.0) L 02/07/20 16:26 Globulin 4.1 g/dL (2.5-4.5) 02/07/20 16:26 Albumin/Globulin Ratio 0.7 Ratio (1.1-2.1) L 02/07/20 16:26 Specimen Type Catherized urine 02/07/20 17:02 Urine Color Yellow (YELLOW) 02/07/20 17:02 Urine Appearance Cloudy (CLEAR) 02/07/20 17:02 Urine pH 5.0 (5.0 - 8.0) 02/07/20 17:02 Ur Specific [place] 1.020 (1.000-1.030) 02/07/20 17:02 Urine Protein 2+ (NEGATIVE) 02/07/20 17:02 Urine Glucose (UA) 3+ (NEGATIVE) 02/07/20 17: Urine Ketones 2+ (NEGATIVE) 02/07/20 17: Urine Occult Blood 1+ (NEGATIVE) 02/07/20 17: Urine Nitrite Negative (NEGATIVE) 02/07/20 17: Urine Bilirubin Negative (NEGATIVE) 02/07/20 17: Urine Urobilinogen 2+ (NORMAL) 02/07/20 17: Ur Leukocyte Esterase 2+ (NEGATIVE) 02/07/20 17:02 Urine RBC 5-10 /HPF (0-3) A 02/07/20 17: Urine WBC 20-30 /HPF (0-5) A 02/07/20 17: Ur Squamous Epith Cells Few /HPF (NEGATIVE) 02/07/20 17:02 Urine Bacteria 1+ /HPF (NEGATIVE) 02/07/20 17: Urine Mucus Few /HPF (NEGATIVE) 02/07/20 17: Urine Yeast Moderate /HPF (NEGATIVE) 02/07/20 17:02 Ur Culture Indicated? Yes/culture set up 02/07/20 17:02 XRAY XRAY Interpreted by: Self X-ray Results: CXR: Cardiac silhouhette is normal, thoracotomy wires are present. There is calcification of the aorta. The lungs are clear EKG Rate: 119 [place]: Normal Rhythm: Afib Block: IVCD Hypertrophy: None ST: Normal Opioid Opioid Risk Tool Age (Andrea box if 16-45): No History of Preadolescent Sexual Abuse: No Total: 0 Total Score Risk Category: Low Risk Copyright: Jaswinder NOEL predicting aberrant behaviors Diagnosis Discharge Problem: Atrial fibrillation with rapid ventricular response, Confusion Urinary tract infection Qualifiers: Urinary tract infection type: acute cystitis Hematuria presence: without hematuria Qualified Code(s): N30.00 - Acute cystitis without hematuria Hypertension Qualifiers: Hypertension type: essential hypertension Qualified Code(s): I10 - Essential (primary) hypertension Hypothyroidism Qualifiers: Hypothyroidism type: acquired Qualified Code(s): E03.9 - Hypothyroidism, unspecified Hyperlipidemia Qualifiers: Hyperlipidemia type: mixed hyperlipidemia Qualified Code(s): E78.2 - Mixed hyperlipidemia ADDITIONAL NOTES Additional Notes Additional Notes: Name: JO-ANN ARORA : 1935 Sex: F Location: ER Order Number(s): [id number] Procedure(s):LOWER EXT VENOUS, BILATERAL Ordering Physician: ALESHIA OGLESBY Primary Care: [facility] Service Date: 02/07/20 Service Time: 1702 Bilateral lower extremity venous doppler Indication: Bilateral leg swelling Technique: Multiple maki scale and color doppler images of the deep venous system were obtained of the right and left lower extremity. Findings: The deep venous system of the right and left lower extremities were evaluated from the level of the common femoral vein through the popliteal vein. Normal color flow and augmentation is observed. In addition, normal compression is seen throughout the deep venous system of the right and left lower extremities. Impression: Negative for DVT. Electronically signed by: TONYA BARONE (February 07, 2020 17:51:44) Name: JO-ANN ARORA : 1935 Sex: F Location: ER Order Number(s): [id number] Procedure(s):CHEST, 1 VIEW Ordering Physician: ALESHIA OGLESBY Primary Care: [facility] Service Date: 02/07/20 Service Time: 1552 CHEST, 1 VIEW History: CONFUSION Comparison: 01/17/2020 Findings: Accounting for AP technique, there is stable mild enlargement of the cardiac silhouette without congestive failure. Prior CABG noted. No acute alveolar infiltrate or significant effusion is identified. No pneumothorax. Impression: No acute cardiopulmonary abnormality or significant change since prior. Electronically signed by: TONYA BARONE (February 07, 2020 16:07:07) Report Electronically signed: 02/07/20 1608 CC: Aleshia Oglesby
[2020-02-07] MEDS ORDERED: NS 1000 ML 1,000 ML ONE (16:07)
--- NOTE | 2020-02-07 16:08 | RAD ---
CHEST, 1 VIEWHistory: CONFUSIONComparison: 01/17/2020Findings: Accounting for AP technique, there is stable mild enlargement of the cardiac silhouette without congestive failure. Prior CABG noted. No acute alveolar infiltrate or significant effusion is identified. No pneumothorax.Impression: No acute cardiopulmonary abnormality or significant change since prior.Electronically signed by: TONYA BARONE (February 07, 2020 16:07:07)
[2020-02-07] MEDS: NS 1000 ML 1,000 ML IV SCH (16:16)
[2020-02-07 16:38] LABS: BASOPHILS # (AUTO) 0.1 X10^3/uL (0.0-0.1); BASOPHILS % (AUTO) 0.4 % (0.2-1.0); EOSINOPHILS % (AUTO) 0.2 % (0.9-2.9); HEMATOCRIT 41.5 % (36.0-47.0); HEMOGLOBIN 13.3 g/dL (12.0-16.0); LYMPHOCYTES # (AUTO) 1.3 X10^3/uL (1.3-2.9); LYMPHOCYTES % (AUTO) 10.8 % (21.0-51.0); MEAN CORPUSCULAR HEMOGLOBIN 28.4 pg (27.0-34.0); MEAN CORPUSCULAR HGB CONC 32.1 g/dL (33.0-35.0); MEAN CORPUSCULAR VOLUME 88.4 fL (80.0-100.0); MEAN PLATELET VOLUME 9.3 fL (7.4-11.0); MONOCYTES # (AUTO) 1.3 x10^3/uL (0.3-0.8); NEUTROPHILS # (AUTO) 9.3 x10^3/uL (2.2-4.8); NEUTROPHILS % (AUTO) 77.6 % (42.0-75.0); PLATELET COUNT 220 X10^3/uL (150.0-450.0); RED BLOOD COUNT 4.69 X10^6/uL (3.5-5.4); RED CELL DISTRIBUTION WIDTH 15.4 % (11.6-16.5)
[2020-02-07 16:55] LABS: BLOOD UREA NITROGEN 16 mg/dL (7-18); CALCIUM 8.4 mg/dL (8.5-10.1); CARBON DIOXIDE 30.5 mmol/L (21-32); CHLORIDE 105 mmol/L (98-107); COR NA(FOR HYPERGLY) 148 mmol/L (136-145); CREATININE 1.02 mg/dL (0.55-1.02); SODIUM 143 mmol/L (136-145); TROPONIN I 0.03 ng/mL (0-1.5); eGFR NON BLACK RACES 55 (>60)
[2020-02-07 17:00] LABS: ALANINE AMINOTRANSFERASE 9 Units/L (12-78); ALBUMIN 2.7 g/dL (3.4-5.0); ALKALINE PHOSPHATASE 70 Units/L (46-116); ASPARTATE AMINO TRANSFERASE 14 Units/L (15-37); CKMB % 0.6 % (<4); COR CA(FOR HYPOALB) 9.4 mg/dL (8.5-10.1); CREATINE KINASE 312 Units/L (26-192); TOTAL PROTEIN 6.8 g/dL (6.4-8.2)
[2020-02-07 17:10] LABS: BILIRUBIN,URINE NEGATIVE (NEGATIVE); BLOOD/HEMOGLOBIN,URINE 1+ (NEGATIVE); GLUCOSE, URINE 3+ (NEGATIVE); KETONES,URINE 2+ (NEGATIVE); LEUKOCYTE ESTERASE ,URINE 2+ (NEGATIVE); NITRITES,URINE NEGATIVE (NEGATIVE); PROTEIN,URINE 2+ (NEGATIVE); UROBILINOGEN,URINE 2+ (NORMAL)
[2020-02-07 17:11] LABS: APPEARANCE,URINE CLOUDY (CLEAR); COLOR,URINE YELLOW (YELLOW)
[2020-02-07 17:17] LABS: BACTERIA,URINE 1+ /HPF (NEGATIVE); MUCUS,URINE FEW /HPF (NEGATIVE); SQUAMOUS EPITHELIAL CELL,UR FEW /HPF (NEGATIVE); YEAST,URINE MODERATE /HPF (NEGATIVE)
--- NOTE | 2020-02-07 17:53 | VAS ---
Bilateral lower extremity venous dopplerIndication: Bilateral leg swellingTechnique: Multiple maki scale and color doppler images of the deep venous system were obtained of the right and left lower extremity.Findings: The deep venous system of the right and left lower extremities were evaluated from the level of the common femoral vein through the popliteal vein. Normal color flow and augmentation is observed. In addition, normal compression is seen throughout the deep venous system of the right and left lower extremities.Impression: Negative for DVT.Electronically signed by: TONYA BARONE (February 07, 2020 17:51:44)
[2020-02-07] MEDS ORDERED: NORMODYNE INJ 100 MG VIAL IVP ONE (18:24)
[2020-02-07] MEDS ORDERED: NORMODYNE INJ 20 MG VIAL ONE (18:45)
[2020-02-07] MEDS ORDERED: LEVAQUIN PREMIX IV 500 MG 500 MG/100 ML BAG IV ONE (18:46)
[2020-02-07] MEDS ORDERED: LEVAQUIN PREMIX IV 500 MG 500 MG/100 ML BAG IV SCH (19:00)
[2020-02-07] MEDS ORDERED: HumaLOG SC PRN (19:21)
[2020-02-07] MEDS: PROTONIX TAB 40 MG PO SCH (21:46)
[2020-02-07] MEDS: COREG TAB 3.125 MG PO SCH (21:46)
[2020-02-07] MEDS: HumaLOG SC SCH (22:14)
[2020-02-08] MEDS ORDERED: NORCO 5/325 MG TAB PO PRN (00:21)
[2020-02-08] MEDS ORDERED: NORCO 5/325 MG TAB ONE (00:23)
[2020-02-08] MEDS: NS 1000 ML 1,000 ML IV SCH ×4 (01:16→17:47)
[2020-02-08 06:02] LABS: ALANINE AMINOTRANSFERASE 10 Units/L (12-78); ALBUMIN 2.3 g/dL (3.4-5.0); ALKALINE PHOSPHATASE 60 Units/L (46-116); ASPARTATE AMINO TRANSFERASE 14 Units/L (15-37); BLOOD UREA NITROGEN 14 mg/dL (7-18); CARBON DIOXIDE 28.1 mmol/L (21-32); CHLORIDE 107 mmol/L (98-107); COR CA(FOR HYPOALB) 9.4 mg/dL (8.5-10.1); COR NA(FOR HYPERGLY) 146 mmol/L (136-145); CREATININE 0.75 mg/dL (0.55-1.02); SODIUM 143 mmol/L (136-145); eGFR NON BLACK RACES > 60 (>60)
[2020-02-08 06:05] LABS: BASOPHILS # (AUTO) 0.1 X10^3/uL (0.0-0.1); BASOPHILS % (AUTO) 0.6 % (0.2-1.0); EOSINOPHILS # (AUTO) 0.1 x10^3/uL (0.0-0.2); EOSINOPHILS % (AUTO) 1.4 % (0.9-2.9); HEMOGLOBIN 11.7 g/dL (12.0-16.0); LYMPHOCYTES # (AUTO) 1.4 X10^3/uL (1.3-2.9); LYMPHOCYTES % (AUTO) 16.9 % (21.0-51.0); MEAN CORPUSCULAR HEMOGLOBIN 28.9 pg (27.0-34.0); MEAN CORPUSCULAR HGB CONC 32.5 g/dL (33.0-35.0); MEAN PLATELET VOLUME 10.1 fL (7.4-11.0); MONOCYTES % (AUTO) 11.7 % (0.0-13.0); NEUTROPHILS # (AUTO) 5.8 x10^3/uL (2.2-4.8); NEUTROPHILS % (AUTO) 69.4 % (42.0-75.0); PLATELET COUNT 181 X10^3/uL (150.0-450.0); RED BLOOD COUNT 4.05 X10^6/uL (3.5-5.4); RED CELL DISTRIBUTION WIDTH 15.4 % (11.6-16.5); WHITE BLOOD COUNT 8.4 X10^3/uL (3.6-10.0)
[2020-02-08] MEDS: SYNTHROID 175 mcg TAB PO SCH (06:30)
[2020-02-08] MEDS: HumaLOG SC SCH ×3 (06:31→17:37)
[2020-02-08] MEDS ORDERED: LEVAQUIN PREMIX IV 250 MG 250 MG/50 ML BAG IV SCH (09:00)
[2020-02-08] MEDS ORDERED: LEVAQUIN PREMIX IV 500 MG 500 MG/100 ML BAG IV SCH (09:00)
[2020-02-08] MEDS ORDERED: LANOXIN PO ONE (09:35)
[2020-02-08] MEDS: PROTONIX TAB 40 MG PO SCH ×2 (09:42→21:27)
[2020-02-08] MEDS: COREG TAB 3.125 MG PO SCH ×2 (09:42→21:27)
[2020-02-08] MEDS: LANOXIN or DIGITEK PO SCH (09:42)
[2020-02-08] MEDS: XARELTO PO SCH (09:43)
[2020-02-08] MEDS: LIPITOR TAB 40 MG PO SCH (09:43)
[2020-02-08] MEDS: MICRO K EXTEN CAP 10 MEQ PO SCH (09:44)
[2020-02-08] MEDS: LEVAQUIN PREMIX IV 500 MG 500 MG/100 ML BAG IV SCH (09:45)
[2020-02-08] MEDS ORDERED: LANTUS SC ONE (09:53)
[2020-02-08] MEDS: PATIENT'S HOME MEDICATION (Mirabegron [Myrbetriq] 50 MG) PO SCH (10:19)
[2020-02-08] MEDS: LANTUS SC SCH ×2 (11:53→21:27)
--- NOTE | 2020-02-08 18:24 | DR.H&P ---
H&P - History & Physical for Day of: H&P Date: 02/07/20 - Chief Complaint Chief Complaint: ALTERED MENTAL STATUS, WEAKNESS - History of Present Illness History of Present Illness: IS A 84 YEAR OLD PATIENT OF OURS. SHE PRESENTED TO THE ER VIA EMS WITH FAMILY REPORTING CONFUSION AND WEAKNESS. PATIENT REPORTS RIGHT LEG PAIN (5/10), OTHERWISE, SHE DENIES COMPLAINTS, SOB, OR FEVER. FAMILY REPORTS THAT PATIENT OFTEN GETS CONFUSED WHEN SHE HAS A URINARY TRACT INFECTION. SYMPTOMS STARTED TWO DAYS AGO AND HAVE PROGRESSIVELY GOTTEN WORSE. EXAMINATION REVEALS IRREGULAR RHYTHM, INCREASED HEART RATE, AND SCATTERED BRUISING. PMH INCLUDES ATRIAL FIBRILLATION, ANEMIA, ANGINA, ANXIETY, ARTHRITIS, COPD, CAD, CVA, DEPRESSION, DIABETES, DYSLIPIDEMIA, GERD, HTN, HYPOTHYROIDIMS, AND NJ. ON ARRIVAL TO THE ER, VITALS WERE [id number]%RA-225/100. LABS WERE OBTAINED. ABNORMAL LAB VALUES INCLUDE THE FOLLOWING: WBC 12.0, CORRECTED SODIUM 148, GLUCOSE 296, CALCIUM 8.4, TOTAL BILI 1.60, AST 14, ALT 9, CRATINE KINASE 312, ALBUMIN 2.7, TSH 3RD GEN 0.084, DIGOXIN 0.50. URINALYSIS REVEALED: WBC 20- 30, RBC 5-10, BACTERIA 1+, MUCUS FEW, YEAST MODERATE, LEUKOCYTES 2+. URINE CULTURE WAS SET UP. A CHEST XRAY WAS OBTAINED AND REVEALED: No acute cardi opulmonary abnormality or significant change since prior. AN EKG WAS OBTAINED AND REVEALED: ATRIAL FIBRILLATION WITH HR 119. A VENOUS DOPPLER OF THE RIGHT LEG WAS OBTAINED AND REVEALED: NEGATIVE FOR DVT. SHE WAS GIVEN NORMODYNE 20MG IV X 1 DOSE, CARDIZEM 29MG IV X 1 DOSE, AND LEVAQUIN 500MG IV X 1 DOSE IN THE ER. HER BLOOD PRESSURE DECREASED TO 179/73. SHE WAS ADMITTED TO THE HOSPITAL FOR FURTHER EVALUATION AND TREATMENT OF URINARY TRACT INFECTION, AMS, A-FIB WITH RVR, AND UNCONTROLLED HYPERTENSION. SHE WAS STARTED ON NORMAL SALINE AT 100 ML/HR, LEVAQUIN 500MG IV DAILY, DIGOXIN 0.125MG PO DAILY, XARELTO 20MG PO DAILY, PROTONIX 40MG PO BID, LANTUS 24 UNITS SC BID, HUMALOG SLIDING SCALE, COREG 3.125MG PO BID, LIPITOR 40MG PO DAILY. WE WILL REVIEW HER OTHER HOME MEDICATIONS. WE WILL ADMINISTER AN ADDITIONAL DOSE OF DIGOXIN 0.125MG PO THIS MORNING. OTHERWISE, WE PLAN TO FOLLOW UP WITH AM LABS AND CONTINUE TO MONITOR. - Past Medical History Past Medical History: Angina, [place], Coronary Artery Disease, Hypertension, Dyslipidemia, Diabetes, Depression, Anxiety, Hypothyroidism, Anemia, CVA, COPD, GERD, Arthritis Additional Medical History: Freq UTI's, PVD - Past Surgical History Surgical History: Cholecystectomy - Family History Family Medical History: Diabetes Mellitus, Cancer - Social History Alcohol Use: None Drug Use: None - Medications Home Medications: No Known Drug Allergies Allergy (Verified 01/17/20 18:11) - Review of Systems Constitutional: See HPI, Weakness Eyes: No Symptoms Reported ENT: No Symptoms Reported Respiratory: No Symptoms Reported Cardiovascular: Palpitations Gastrointestinal: No Symptoms Reported Genitourinary: No Symptoms Reported Musculoskeletal: Leg Pain (RIGHT LEG PAIN ) Skin: Bruising (SCATTERED BRUISING ) Neurological: See HPI, Weakness, Confusion - Physical Exam Vital Signs: Temperature 97.3 F Pulse Rate [Right Brachial] 72 Pulse Rate [Left Brachial] 89 Pulse Rate 89 Respiratory Rate 20 Blood Pressure [Right Arm] 122/77 Blood Pressure [Left Arm] 148/60 Blood Pressure 179/73 O2 Sat by Pulse Oximetry 97 Oriented: Not Oriented Eyes: Normal Ear: Normal Nose: Normal Throat: Normal Respiratory: Diminished Throughout Cardiovascular: Tachycardia. negative: S3, S4, Murmur : Normal Auscultation: Bowel Sounds: Normal Palpation: Normal Tenderness: Normal Skin: Bruising Musculoskeletal: Right, Leg, Tender Psychiatric: Normal Mood Description: Calm Affect: Normal Speech Pattern: Inappropriate - Assessment/Plan (1) UTI (urinary tract infection) Qualifiers: Urinary tract infection type: acute cystitis Hematuria presence: without hematuria Qualified Code(s): N30.00 - Acute cystitis without hematuria Status: Acute Plan: ADMIT, NORMAL SALINE AT 100 ML/HR, LEVAQUIN 500MG IV DAILY, DIGOXIN 0.125MG PO DAILY, XARELTO 20MG PO DAILY, PROTONIX 40MG PO BID, LANTUS 24 UNITS SC BID, HUMALOG SLIDING SCALE, COREG 3.125MG PO BID, LIPITOR 40MG PO DAILY. WE WILL REVIEW HER OTHER HOME MEDICATIONS. (2) Atrial fibrillation with rapid ventricular response Status: Acute Plan: WE WILL ADMINISTER AN ADDITIONAL DOSE OF DIGOXIN 0.125MG PO THIS MORNING. (3) Hypertension Qualifiers: Hypertension type: essential hypertension Qualified Code(s): I10 - Essential (primary) hypertension Status: Chronic Plan: CONTINUE HOME MEDICATIONS (4) Altered mental state Qualifiers: Altered mental status type: transient alteration of awareness Qualified Code(s): R40.4 - Transient alteration of awareness Status: Acute (5) Hyperlipidemia Qualifiers: Hyperlipidemia type: mixed hyperlipidemia Qualified Code(s): E78.2 - Mixed hyperlipidemia Status: Acute Plan: CONTINUE HOME MEDS, CONTINUE TO MONITOR (6) Hypothyroidism Qualifiers: Hypothyroidism type: acquired Qualified Code(s): E03.9 - Hypothyroidism, unspecified Status: Chronic Plan: CONTINUE HOME MEDS, CONTINUE TO MONITOR (7) COPD (chronic obstructive pulmonary disease) Qualifiers: COPD type: unspecified COPD Qualified Code(s): J44.9 - Chronic obstructive pulmonary disease, unspecified Status: Chronic Plan: CONTINUE HOME MEDS, CONTINUE TO MONITOR (8) Diabetes mellitus, type 2 Qualifiers: 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 insulin use: with termite control representative use Diabetes mellitus complication status: without complication Qualified Code(s): E11.9 - Type 2 diabetes mellitus without complications; Z79.4 - termite control service representative (current) use of insulin Status: Chronic Plan: MONITOR OTBS ACHS, CONTINUE HOME MEDS, CONTINUE TO MONITOR (9) GERD (gastroesophageal reflux disease) Qualifiers: Esophagitis presence: esophagitis presence not specified Qualified Code(s): K21.9 - Gastro-esophageal reflux disease without esophagitis Status: Chronic Plan: CONTINUE HOME MEDS, CONTINUE TO MONITOR (10) History of CVA (cerebrovascular accident) Status: Chronic Plan: CONTINUE HOME MEDS, CONTINUE TO MONITOR - Review H&P Reviewed: Yes Patient was examined?: Yes - Allergies Allergies/Adverse Reactions: Allergies Allergy/AdvReac Type Severity Reaction Status Date / Time No Known Drug Allergies Allergy Verified 01/17/20 18:11
[2020-02-08] MEDS ORDERED: SNACK - Diabetic Appropriate PO SCH ×2 (20:00)
[2020-02-09 05:21] LABS: BASOPHILS # (AUTO) 0.1 X10^3/uL (0.0-0.1); BASOPHILS % (AUTO) 1.1 % (0.2-1.0); EOSINOPHILS # (AUTO) 0.3 x10^3/uL (0.0-0.2); EOSINOPHILS % (AUTO) 4.1 % (0.9-2.9); HEMOGLOBIN 11.3 g/dL (12.0-16.0); LYMPHOCYTES # (AUTO) 1.5 X10^3/uL (1.3-2.9); LYMPHOCYTES % (AUTO) 18.9 % (21.0-51.0); MEAN CORPUSCULAR HEMOGLOBIN 28.7 pg (27.0-34.0); MEAN CORPUSCULAR HGB CONC 32.3 g/dL (33.0-35.0); MEAN PLATELET VOLUME 10.1 fL (7.4-11.0); MONOCYTES # (AUTO) 0.6 x10^3/uL (0.3-0.8); MONOCYTES % (AUTO) 7.7 % (0.0-13.0); NEUTROPHILS # (AUTO) 5.4 x10^3/uL (2.2-4.8); NEUTROPHILS % (AUTO) 68.2 % (42.0-75.0); PLATELET COUNT 180 X10^3/uL (150.0-450.0); RED BLOOD COUNT 3.93 X10^6/uL (3.5-5.4); RED CELL DISTRIBUTION WIDTH 15.2 % (11.6-16.5); WHITE BLOOD COUNT 7.9 X10^3/uL (3.6-10.0)
[2020-02-09 05:33] LABS: ALANINE AMINOTRANSFERASE 10 Units/L (12-78); ALBUMIN 2.2 g/dL (3.4-5.0); ALKALINE PHOSPHATASE 58 Units/L (46-116); ASPARTATE AMINO TRANSFERASE 12 Units/L (15-37); BLOOD UREA NITROGEN 14 mg/dL (7-18); CARBON DIOXIDE 29.2 mmol/L (21-32); CHLORIDE 109 mmol/L (98-107); COR CA(FOR HYPOALB) 9.4 mg/dL (8.5-10.1); COR NA(FOR HYPERGLY) 145 mmol/L (136-145); CREATININE 0.79 mg/dL (0.55-1.02); DIGOXIN 0.76 ng/mL (0.9-2); SODIUM 143 mmol/L (136-145); TOTAL PROTEIN 5.8 g/dL (6.4-8.2); eGFR NON BLACK RACES > 60 (>60)
[2020-02-09] MEDS: NS 1000 ML 1,000 ML IV SCH ×2 (05:52→09:53)
[2020-02-09] MEDS: LEVAQUIN PREMIX IV 500 MG 500 MG/100 ML BAG IV SCH (08:56)
[2020-02-09] MEDS: XARELTO PO SCH (08:57)
[2020-02-09] MEDS: SYNTHROID 175 mcg TAB PO SCH (08:57)
[2020-02-09] MEDS: MICRO K EXTEN CAP 10 MEQ PO SCH (08:57)
[2020-02-09] MEDS: PROTONIX TAB 40 MG PO SCH (08:57)
[2020-02-09] MEDS: LANOXIN or DIGITEK PO SCH (08:58)
[2020-02-09] MEDS: LIPITOR TAB 40 MG PO SCH (08:59)
[2020-02-09] MEDS: COREG TAB 3.125 MG PO SCH (08:59)
[2020-02-09] MEDS: LANTUS SC SCH (08:59)
[2020-02-09] MEDS ORDERED: DIFLUCAN 200 MG IV PREMIX* 200 MG/100 ML BAG IV SCH (09:00)
[2020-02-09] MEDS: PATIENT'S HOME MEDICATION (Mirabegron [Myrbetriq] 50 MG) PO SCH (09:52)
[2020-02-09] MEDS: HumaLOG SC SCH ×2 (09:52→11:31)
[2020-02-09 13:17] VITALS: BP 139/76
== END 2020-02-09 17:00 | disposition home or self-care (01) ==
LOC: ER 15:11 → MED/SURG 15:11
PROVIDERS: ADMIT Internal Medicine; ATTEND Internal Medicine
DX: E03.8 Other specified hypothyroidism; E78.2 Mixed hyperlipidemia; Z86.73 Personal history of transient ischemic attack (TIA), and cerebral infarction without residual deficits; I48.91 Unspecified atrial fibrillation; N30.00 Acute cystitis without hematuria; M79.604 Pain in right leg; R94.31 Abnormal electrocardiogram [ECG] [EKG]; I10 Essential (primary) hypertension; I25.10 Atherosclerotic heart disease of native coronary artery without angina pectoris; R40.4 Transient alteration of awareness; E11.65 Type 2 diabetes mellitus with hyperglycemia; K21.9 Gastro-esophageal reflux disease without esophagitis; J44.9 Chronic obstructive pulmonary disease, unspecified; R60.0 Localized edema
CPT/HCPCS: 36415; 51702; 71010; 71045; 80053; 80162; 81001; 82550; 82553; 83525; 84443; 84484; 85025; 87086; 93005; 93970; 96360; 96361; 96365; 96367; 96372; 96374; 96375; 99284; A4222; G0378; J1450; J1815; J1817; J1956; J3490; J7030